=== PATIENT | female | born 1965 | race African-American/Black ===

== ENCOUNTER 2018-06-07 06:54 | Inpatient (IN) ==
[2018-05-30 10:47] LABS: Basophils # 0.1 10*3/uL (0.0-0.2); Basophils % 0.7 % (0.0-0.8); Eosinophils # 0.2 10*3/uL (0.0-0.87); Eosinophils % 2.2 % (0.00-10.9); Hematocrit 35.4 VOL% (35.7-47.0); Hemoglobin 10.8 GM/DL (12.0-16.0); Immature Granulocytes % 0.4 %; Immature Granulocytes Absolute 0.04 #; Lymphocytes # 2.2 10*3/uL (1.4-4.0); Lymphocytes % 23.4 % (21.3-54.2); Mean Corpuscular HGB Conc 30.5 GM/DL (32-36); Mean Corpuscular Hemoglobin 30 PG (27-34); Mean Corpuscular Volume 98.1 FL (87-102); Mean Platelet Volume 11.2 FL (9.6-12.0); Monocytes # 0.7 10*3/uL (0.11-0.8); Monocytes % 7.9 % (1.7-12.7); Neutrophils # 6.2 10*3/uL (1.4-7.4); Neutrophils % 65.4 % (38.7-73.9); Platelet Count 307 T/CUMM (130-400); Red Blood Count 3.61 MC/CUMM (3.8-5.5); White Blood Count 9.4 T/CUMM (4-12)
[2018-05-30 11:07] LABS: Albumin 3.1 G/DL (3.4-5.0); Bilirubin,Total 0.7 MG/DL (0.2-1.0); Calcium 8.8 MG/DL (8.5-10.1); Osmolality,Calculated 297.4 MOS/KG (273-304); Potassium 4.5 MMOL/L (3.5-5.1); Total Protein 7.2 G/DL (6.4-8.3)
[~2018-06-07 06:54] MED LIST: ALVIMOPAN 12 MG CAPSULE PO ONE; cefOXitin 1,000 MG in SYRINGE 1 EACH IV ONE
[2018-06-07] MEDS ORDERED: ALVIMOPAN 12 MG CAPSULE ONE (07:36)
[2018-06-07] MEDS: LACTATED RINGERS 1,000 ML IV SCH ×2 (07:58→17:32)
[2018-06-07] MEDS ORDERED: BUPIVACAINE 0.5% 50 ML VIAL ONE (11:35)
[2018-06-07] MEDS ORDERED: MEPERIDINE 25 MG/1 ML VIAL ONE (13:48)
[2018-06-07] MEDS ORDERED: HYDROmorphone 2 MG/1 ML VIAL ONE (13:48)
[2018-06-07] MEDS ORDERED: ONDANSETRON 4 MG/2 ML VIAL ONE ×2 (13:48→13:55)
[2018-06-07] MEDS ORDERED: PROMETHAZINE 25 MG/1 ML VIAL ONE (13:48)
[2018-06-07] MEDS ORDERED: MEPERIDINE 25 MG/1 ML VIAL IV PRN (13:54)
[2018-06-07] MEDS ORDERED: ONDANSETRON 4 MG/2 ML VIAL IV PRN ×2 (13:54→14:17)
[2018-06-07] MEDS ORDERED: PROMETHAZINE INJ 25 MG in SODIUM CHLORIDE 0.9% 50 ML IV PRN (13:54)
[2018-06-07] MEDS ORDERED: HYDROmorphone 2 MG/1 ML VIAL IV PRN (13:54)
[2018-06-07] MEDS ORDERED: fentaNYL 100 MCG/2 ML VIAL ONE (13:55)
[2018-06-07] MEDS ORDERED: DESFLURANE 1 UNIT/15 MINUTE INH ONE (13:55)
[2018-06-07] MEDS ORDERED: DEXAMETHASONE 10 MG/1 ML VIAL ONE (13:55)
[2018-06-07] MEDS ORDERED: MIDAZOLAM 2 MG/2 ML VIAL ONE (13:55)
[2018-06-07] MEDS ORDERED: PROPOFOL 200 MG/20 ML VIAL IV ONE (13:55)
[2018-06-07] MEDS ORDERED: ROCURONIUM 100 MG/10 ML VIAL IV ONE (13:56)
[2018-06-07] MEDS ORDERED: NEOSTIGMINE 10 MG/10 ML VIAL ONE (13:56)
[2018-06-07] MEDS ORDERED: GLYCOPYRROLATE 0.4 MG/2 ML VIAL ONE (13:56)
[2018-06-07] MEDS ORDERED: LACTATED RINGERS 1,000 ML IV ONE (13:56)
[2018-06-07 13:59] LABS: Apearance,Urine Clear (Clear); Urine Color Yellow (Yellow); Urine Specific Gravity 1.015 (1.001-1.035)
[2018-06-07 14:00] LABS: Bilirubin,Urine Negative (Negative); Blood, Urine 0.03 mg/dL (Negative); Glucose,Urine (UA) 50 mg/dL (Negative); Ketones,Urine Negative (Negative); Nitrite,Urine Negative (Negative); Protein,Urine 30 MG/DL; Urine Urobilinogen 0.2 EU/DL (0.2-1.0)
[2018-06-07] MEDS ORDERED: ACETAMINOPHEN 325 MG TABLET PO PRN (14:17)
[2018-06-07] MEDS ORDERED: ALBUTEROL/IPRATROPIUM 3 ML NEB RESP TX PRN (14:17)
[2018-06-07] MEDS ORDERED: KETOROLAC 15 MG/1 ML VIAL IV PRN (14:30)
[2018-06-07] MEDS: cefOXitin 2,000 MG in SYRINGE 1 EACH IV SCH ×2 (17:18→23:04)
[2018-06-07] MEDS: GABAPENTIN 300 MG CAPSULE PO SCH ×2 (17:18→21:13)
[2018-06-07] MEDS ORDERED: FEXOFENADINE 180 MG TABLET PO SCH (21:00)
[2018-06-07] MEDS: FEXOFENADINE 180 MG TABLET PO SCH (21:13)
[2018-06-08] MEDS: cefOXitin 2,000 MG in SYRINGE 1 EACH IV SCH ×4 (04:36→23:09)
[2018-06-08 05:10] LABS: Basophils % 0.1 % (0.0-0.8); Hematocrit 30.4 VOL% (35.7-47.0); Hemoglobin 9.2 GM/DL (12.0-16.0); Immature Granulocytes % 0.5 %; Immature Granulocytes Absolute 0.07 #; Lymphocytes # 0.9 10*3/uL (1.4-4.0); Lymphocytes % 6.5 % (21.3-54.2); Mean Corpuscular HGB Conc 30.3 GM/DL (32-36); Mean Corpuscular Hemoglobin 30 PG (27-34); Mean Corpuscular Volume 97.4 FL (87-102); Mean Platelet Volume 10.8 FL (9.6-12.0); Neutrophils # 12.2 10*3/uL (1.4-7.4); Neutrophils % 85.9 % (38.7-73.9); Platelet Count 310 T/CUMM (130-400); Red Blood Count 3.12 MC/CUMM (3.8-5.5); Red Cell Distribution Width 12.8 % (9.3-17.3); White Blood Count 14.2 T/CUMM (4-12)
[2018-06-08 05:30] LABS: Calcium 8.6 MG/DL (8.5-10.1); Osmolality,Calculated 292.5 MOS/KG (273-304); Potassium 5.1 MMOL/L (3.5-5.1)
[2018-06-08] MEDS ORDERED: hydroCHLOROthiazide 25 MG TABLET PO SCH (09:00)
[2018-06-08] MEDS: FEXOFENADINE 180 MG TABLET PO SCH ×2 (09:24→20:26)
[2018-06-08] MEDS: GABAPENTIN 300 MG CAPSULE PO SCH ×3 (09:25→20:26)
[2018-06-08] MEDS: PANTOPRAZOLE 40 MG TABLET PO SCH (09:25)
[2018-06-08] MEDS: METOPROLOL TARTRATE 25 MG TABLET PO SCH (12:36)
[2018-06-08] MEDS: PHENAZOPYRIDINE 95 MG TABLET PO SCH (17:57)
[2018-06-08] MEDS: LACTATED RINGERS 1,000 ML IV SCH ×3 (20:21→20:35)
[2018-06-08 20:31] LABS: Apearance,Urine CLEAR (Clear); Bacteria,Urine Occasional /HPF (Few); Bilirubin,Urine Negative (Negative); Blood, Urine Small mg/dL (Negative); Glucose,Urine (UA) Negative (Negative); Ketones,Urine Negative (Negative); Mucus,Urine Occasional /LPF (Occasional); Nitrite,Urine Negative (Negative); Protein,Urine 100 MG/DL; RBC,Urine 2 /HPF (0-4); Squamous Epithelial Cell,Urine Occasional /HPF (0-10); Urine Color Straw (Yellow); Urine Specific Gravity 1.011 (1.001-1.035); Urine Urobilinogen < 2.0 EU/DL (0.2-1.0); WBC,Urine 1 /HPF (0-6)
[2018-06-09] MEDS: cefOXitin 2,000 MG in SYRINGE 1 EACH IV SCH ×3 (05:56→22:50)
[2018-06-09 06:24] LABS: Basophils # 0.1 10*3/uL (0.0-0.2); Basophils % 0.4 % (0.0-0.8); Eosinophils # 0.3 10*3/uL (0.0-0.87); Eosinophils % 2.1 % (0.00-10.9); Hematocrit 28.1 VOL% (35.7-47.0); Hemoglobin 8.4 GM/DL (12.0-16.0); Immature Granulocytes % 0.3 %; Immature Granulocytes Absolute 0.04 #; Lymphocytes # 1.9 10*3/uL (1.4-4.0); Lymphocytes % 15.5 % (21.3-54.2); Mean Corpuscular HGB Conc 29.9 GM/DL (32-36); Mean Corpuscular Hemoglobin 29 PG (27-34); Mean Corpuscular Volume 98.3 FL (87-102); Mean Platelet Volume 10.9 FL (9.6-12.0); Monocytes # 1.3 10*3/uL (0.11-0.8); Monocytes % 11.2 % (1.7-12.7); Neutrophils # 8.5 10*3/uL (1.4-7.4); Neutrophils % 70.5 % (38.7-73.9); Platelet Count 283 T/CUMM (130-400); Red Blood Count 2.86 MC/CUMM (3.8-5.5); Red Cell Distribution Width 12.8 % (9.3-17.3)
[2018-06-09] MEDS: LACTATED RINGERS 1,000 ML IV SCH ×3 (06:26→21:17)
[2018-06-09 06:38] LABS: Calcium 8.9 MG/DL (8.5-10.1); Osmolality,Calculated 297.3 MOS/KG (273-304); Potassium 4.3 MMOL/L (3.5-5.1)
[2018-06-09] MEDS: FEXOFENADINE 180 MG TABLET PO SCH ×2 (09:28→21:16)
[2018-06-09] MEDS: PANTOPRAZOLE 40 MG TABLET PO SCH (09:29)
[2018-06-09] MEDS: GABAPENTIN 300 MG CAPSULE PO SCH ×3 (09:29→21:16)
[2018-06-09] MEDS: METOPROLOL TARTRATE 25 MG TABLET PO SCH (09:29)
[2018-06-09] MEDS: PHENAZOPYRIDINE 95 MG TABLET PO SCH ×2 (12:43→19:12)
[2018-06-09] MEDS: ENOXAPARIN 30 MG/0.3 ML SYRINGE SUBCUT SCH (12:47)
[2018-06-10 06:31] LABS: Basophils # 0.1 10*3/uL (0.0-0.2); Basophils % 0.5 % (0.0-0.8); Eosinophils # 0.3 10*3/uL (0.0-0.87); Eosinophils % 2.7 % (0.00-10.9); Hematocrit 32.9 VOL% (35.7-47.0); Hemoglobin 9.8 GM/DL (12.0-16.0); Immature Granulocytes % 0.4 %; Immature Granulocytes Absolute 0.04 #; Lymphocytes # 1.5 10*3/uL (1.4-4.0); Lymphocytes % 13.7 % (21.3-54.2); Mean Corpuscular HGB Conc 29.8 GM/DL (32-36); Mean Corpuscular Hemoglobin 30 PG (27-34); Mean Corpuscular Volume 99.7 FL (87-102); Mean Platelet Volume 12.1 FL (9.6-12.0); Monocytes % 8.8 % (1.7-12.7); Neutrophils # 8.2 10*3/uL (1.4-7.4); Neutrophils % 73.9 % (38.7-73.9); Platelet Count 223 T/CUMM (130-400); Red Cell Distribution Width 12.7 % (9.3-17.3); White Blood Count 11.1 T/CUMM (4-12)
[2018-06-10 06:34] LABS: Calcium 8.8 MG/DL (8.5-10.1); Osmolality,Calculated 296.1 MOS/KG (273-304); Potassium 4.2 MMOL/L (3.5-5.1)
[2018-06-10 08:24] LABS: Anisocytosis 1+; Hypochromasia 2+
[2018-06-10 08:25] LABS: Microcytosis 1+; Ovalocytes Few; Platelet Estimate Normal; Polychromasia Few
[2018-06-10] MEDS: GABAPENTIN 300 MG CAPSULE PO SCH ×3 (08:41→21:09)
[2018-06-10] MEDS: METOPROLOL TARTRATE 25 MG TABLET PO SCH (08:41)
[2018-06-10] MEDS: PHENAZOPYRIDINE 95 MG TABLET PO SCH ×2 (08:41→16:45)
[2018-06-10] MEDS: FEXOFENADINE 180 MG TABLET PO SCH ×2 (08:41→21:09)
[2018-06-10] MEDS: PANTOPRAZOLE 40 MG TABLET PO SCH (08:42)
[2018-06-10] MEDS: LACTATED RINGERS 1,000 ML IV SCH ×2 (13:00)
[2018-06-10] MEDS: ENOXAPARIN 30 MG/0.3 ML SYRINGE SUBCUT SCH (13:00)
[2018-06-10] MEDS: cefOXitin 2,000 MG in SYRINGE 1 EACH IV SCH (13:00)
[2018-06-11 09:12] LABS: Calcium 8.4 MG/DL (8.5-10.1); Osmolality,Calculated 289.4 MOS/KG (273-304); Potassium 4.2 MMOL/L (3.5-5.1)
[2018-06-11] MEDS: PHENAZOPYRIDINE 95 MG TABLET PO SCH ×2 (09:35→17:08)
[2018-06-11] MEDS: DOCUSATE SODIUM 100 MG CAPSULE PO SCH ×2 (09:35→21:29)
[2018-06-11] MEDS: FEXOFENADINE 180 MG TABLET PO SCH ×2 (09:35→21:28)
[2018-06-11] MEDS: BISACODYL 10 MG SUPP RECTAL SCH ×2 (09:36→21:29)
[2018-06-11] MEDS: GABAPENTIN 300 MG CAPSULE PO SCH ×3 (09:36→21:29)
[2018-06-11] MEDS: PANTOPRAZOLE 40 MG TABLET PO SCH (09:36)
[2018-06-11] MEDS: METOPROLOL TARTRATE 25 MG TABLET PO SCH (11:25)
[2018-06-11] MEDS: ENOXAPARIN 30 MG/0.3 ML SYRINGE SUBCUT SCH (13:40)
[2018-06-11] MEDS: hydrALAZINE 25 MG TABLET PO SCH ×2 (15:10→21:29)
[2018-06-11] MEDS: CITALOPRAM 40 MG TABLET PO SCH (15:11)
[2018-06-12 04:36] LABS: Basophils # 0.1 10*3/uL (0.0-0.2); Basophils % 0.5 % (0.0-0.8); Eosinophils # 0.4 10*3/uL (0.0-0.87); Eosinophils % 3.5 % (0.00-10.9); Hematocrit 29.5 VOL% (35.7-47.0); Hemoglobin 8.6 GM/DL (12.0-16.0); Immature Granulocytes % 0.3 %; Immature Granulocytes Absolute 0.03 #; Lymphocytes # 1.4 10*3/uL (1.4-4.0); Lymphocytes % 12.7 % (21.3-54.2); Mean Corpuscular HGB Conc 29.2 GM/DL (32-36); Mean Corpuscular Hemoglobin 29 PG (27-34); Mean Corpuscular Volume 100.3 FL (87-102); Monocytes % 8.7 % (1.7-12.7); Neutrophils # 8.3 10*3/uL (1.4-7.4); Neutrophils % 74.3 % (38.7-73.9); Platelet Count 322 T/CUMM (130-400); Red Blood Count 2.94 MC/CUMM (3.8-5.5); Red Cell Distribution Width 12.7 % (9.3-17.3); White Blood Count 11.2 T/CUMM (4-12)
[2018-06-12 05:07] LABS: Calcium 8.6 MG/DL (8.5-10.1); Osmolality,Calculated 289.4 MOS/KG (273-304); Potassium 4.5 MMOL/L (3.5-5.1); Risk Ratio 3.88; Thyroid Stimulating Hormone 1.08 uIU/ml (0.358-3.74); VLDL CHOLESTEROL 44.4 MG/DL
[2018-06-12 05:08] LABS: Folate 12.9 NG/ML (5.4-24.0)
[2018-06-12] MEDS: DOCUSATE SODIUM 100 MG CAPSULE PO SCH (08:37)
[2018-06-12] MEDS: hydrALAZINE 25 MG TABLET PO SCH (08:37)
[2018-06-12] MEDS: FEXOFENADINE 180 MG TABLET PO SCH (08:37)
[2018-06-12] MEDS: GABAPENTIN 300 MG CAPSULE PO SCH (08:39)
[2018-06-12] MEDS: METOPROLOL TARTRATE 25 MG TABLET PO SCH (08:39)
[2018-06-12] MEDS: PHENAZOPYRIDINE 95 MG TABLET PO SCH (08:40)
[2018-06-12] MEDS: BISACODYL 10 MG SUPP RECTAL SCH (08:40)
[2018-06-12] MEDS: CITALOPRAM 40 MG TABLET PO SCH (08:47)
[2018-06-12] MEDS: PANTOPRAZOLE 40 MG TABLET PO SCH (08:47)
[2018-06-12 12:17] VITALS: BP 163/95
[2018-06-12] MEDS: ENOXAPARIN 30 MG/0.3 ML SYRINGE SUBCUT SCH (12:32)
== END 2018-06-12 14:00 | disposition swing bed (61) | DRG 330 ==
LOC: N.OR 06:54 → N.SDSINP 06:56 → N.3E 14:17
PROVIDERS: ADMIT Surgery; ATTEND Surgery

== ENCOUNTER 2018-12-22 18:01 | Inpatient (IN) ==
[2018-12-22] MEDS ORDERED: hydrALAZINE 20 MG/1 ML VIAL IV STA ×2 (18:27→19:24)
[2018-12-22 18:57] LABS: Basophils # 0.1 10*3/uL (0.0-0.2); Basophils % 0.4 % (0.0-0.8); Eosinophils # 0.1 10*3/uL (0.0-0.87); Eosinophils % 0.5 % (0.00-10.9); Hematocrit 35.9 VOL% (35.7-47.0); Hemoglobin 10.9 GM/DL (12.0-16.0); Immature Granulocytes % 0.6 %; Immature Granulocytes Absolute 0.12 #; Lymphocytes # 2.3 10*3/uL (1.4-4.0); Lymphocytes % 10.6 % (21.3-54.2); Mean Corpuscular HGB Conc 30.4 GM/DL (32-36); Mean Corpuscular Volume 100.3 FL (87-102); Mean Platelet Volume 10.4 FL (9.6-12.0); Monocytes % 6.5 % (1.7-12.7); NRBC # 0.03 10*3/uL; Neutrophils % 81.4 % (38.7-73.9); Platelet Count 394 T/CUMM (130-400); Red Blood Count 3.58 MC/CUMM (3.8-5.5); Red Cell Distribution Width 13.5 % (9.3-17.3); White Blood Count 21.5 T/CUMM (4-12)
[2018-12-22 18:58] LABS: Alanine Aminotransferase 82 U/L (13-56); Albumin 3.3 G/DL (3.4-5.0); Alkaline Phosphatase 104 U/L (45-117); Aspartate Amino Transferase 74 U/L (0-37); Bilirubin,Total < 0.39 MG/DL (0.2-1.0); Blood Urea Nitrogen 36 MG/DL (7-18); Calcium 9.1 MG/DL (8.5-10.1); Glucose 227 MG/DL (74-106); Total Protein 7.6 G/DL (6.4-8.3)
[2018-12-22] MEDS ORDERED: ETOMIDATE 20 MG/10 ML VIAL IV ONE ×2 (18:58→18:59)
[2018-12-22] MEDS ORDERED: ROCURONIUM 100 MG/10 ML VIAL IV ONE (18:58)
[2018-12-22] MEDS ORDERED: CEFEPIME 2,000 MG in SODIUM CHLORIDE 0.9% 100 ML IV STA ×2 (19:07→19:10)
[2018-12-22] MEDS ORDERED: VANCOMYCIN INJ 1,000 MG in SODIUM CHLORIDE 0.9% 250 ML IV ONE ×2 (19:07→19:30)
[2018-12-22] MEDS ORDERED: FUROSEMIDE 40 MG/4 ML VIAL IV STA (19:08)
[2018-12-22] MEDS: PROPOFOL 1,000 MG/100 ML BOTTLE IV SCH (19:16)
[2018-12-22] MEDS ORDERED: ROCURONIUM 100 MG/10 ML VIAL IV STA (19:17)
[2018-12-22 19:35] LABS: ABG Base Excess -8.2 MMOL/L (-2.5-2.5); ABG HCO3 17.8 MMOL/L (20-26); ABG Oxygen Saturation 98.9 % (95-100); ABG PCO2 43.1 MM HG (35-48); ABG PH 7.248 (7.35-7.45); ABG TCO2 17.2 MMOL/L (23-27); Allen Test Positive; Pt O2 Delivery Device Ventilator
[2018-12-22 19:40] LABS: Lymphocytes 9 % (20-55); Macrocytosis Slight; Platelet Estimate Adequate; Polychromasia Slight; Segmented Neutrophils 87 % (50-85); Total Cells Counted 100
[2018-12-22] MEDS ORDERED: LABETALOL 20 MG/4 ML SYRINGE IV STA ×3 (19:46→20:04)
[2018-12-22] MEDS ORDERED: ONDANSETRON 4 MG/2 ML VIAL IV PRN (19:48)
[2018-12-22] MEDS ORDERED: LABETALOL 100 MG/20 ML VIAL IV STA ×2 (20:02→20:07)
[2018-12-22] MEDS ORDERED: ACETAMINOPHEN 325 MG/10.15 ML UDCUP PO PRN (20:07)
[2018-12-22 20:27] LABS: INR 0.9; PT Patient Result 10.1 SECS; Partial Thromboplastin Time 25.2 SECS (0-40)
[2018-12-22 20:47] LABS: Apearance,Urine CLEAR (Clear); Bacteria,Urine Occasional /HPF (Few); Bilirubin,Urine Negative (Negative); Blood, Urine Small mg/dL (Negative); Glucose,Urine (UA) 150 mg/dL (Negative); Ketones,Urine 5 mg/dL (Negative); Mucus,Urine Occasional /LPF (Occasional); Nitrite,Urine Negative (Negative); Protein,Urine >=500 MG/DL; RBC,Urine 3 /HPF (0-4); Squamous Epithelial Cell,Urine Occasional /HPF (0-10); Urine Color Straw (Yellow); Urine Specific Gravity 1.012 (1.001-1.035); Urine Urobilinogen < 2.0 EU/DL (0.2-1.0); WBC,Urine <1 /HPF (0-6)
[2018-12-22] MEDS ORDERED: NITROGLYCERIN DRIP 50 MG/250 ML BOTTLE IV PRN (20:53)
[2018-12-22] MEDS ORDERED: GLUCAGON 1 MG VIAL IM PRN (21:03)
[2018-12-22] MEDS ORDERED: DEXTROSE 50% 25 GM/50 ML VIAL IV PRN (21:03)
[2018-12-22] MEDS: hydrALAZINE 20 MG/1 ML VIAL IV PRN (22:25)
[2018-12-22] MEDS: ENOXAPARIN 30 MG/0.3 ML SYRINGE SUBCUT SCH (22:29)
[2018-12-22] MEDS: INSULIN LISPRO 100 UNIT/ML SUBCUT SCH (23:39)
[2018-12-22] MEDS: PIPERACILLIN/TAZOBACTAM 3,375 MG in SODIUM CHLORIDE 0.9% 100 ML IV SCH (23:40)
[2018-12-23] MEDS: PROPOFOL 1,000 MG/100 ML BOTTLE IV SCH ×8 (01:37→22:23)
[2018-12-23 05:25] LABS: Basophils # 0.1 10*3/uL (0.0-0.2); Basophils % 0.5 % (0.0-0.8); Eosinophils # 0.1 10*3/uL (0.0-0.87); Eosinophils % 0.6 % (0.00-10.9); Hematocrit 33.4 VOL% (35.7-47.0); Hemoglobin 9.9 GM/DL (12.0-16.0); Immature Granulocytes % 0.6 %; Immature Granulocytes Absolute 0.06 #; Lymphocytes # 1.5 10*3/uL (1.4-4.0); Lymphocytes % 13.4 % (21.3-54.2); Mean Corpuscular HGB Conc 29.6 GM/DL (32-36); Mean Platelet Volume 10.6 FL (9.6-12.0); Monocytes % 10.3 % (1.7-12.7); Neutrophils % 74.6 % (38.7-73.9); Platelet Count 349 T/CUMM (130-400); Red Blood Count 3.34 MC/CUMM (3.8-5.5); Red Cell Distribution Width 13.4 % (9.3-17.3); White Blood Count 10.9 T/CUMM (4-12)
[2018-12-23 05:48] LABS: Albumin 2.9 G/DL (3.4-5.0); Bilirubin,Total 0.4 MG/DL (0.2-1.0); Osmolality,Calculated 301.6 MOS/KG (273-304); Total Protein 6.7 G/DL (6.4-8.3)
[2018-12-23 05:51] LABS: Risk Ratio 5.06; VLDL CHOLESTEROL 62.6 MG/DL
[2018-12-23] MEDS: INSULIN LISPRO 100 UNIT/ML SUBCUT SCH ×3 (05:52→18:09)
[2018-12-23] MEDS ORDERED: MAGNESIUM SULF RIDER 4 GM in PREMIX 1 EACH IV PRN (07:11)
[2018-12-23] MEDS ORDERED: POTASSIUM CHLORIDE 20 MEQ TABLET PO PRN (07:11)
[2018-12-23] MEDS ORDERED: MAGNESIUM SULF RIDER 2 GM in PREMIX 1 EACH IV PRN (07:11)
[2018-12-23 07:29] LABS: ABG Base Excess -6.7 MMOL/L (-2.5-2.5); ABG HCO3 18.9 MMOL/L (20-26); ABG Oxygen Saturation 95.4 % (95-100); ABG PCO2 35.9 MM HG (35-48); ABG PH 7.324 (7.35-7.45); ABG PO2 77.6 MM HG (80-95); ABG TCO2 17.2 MMOL/L (23-27); Allen Test Positive; Pt O2 Delivery Device Ventilator
[2018-12-23] MEDS ORDERED: FUROSEMIDE 40 MG/4 ML VIAL IV SCH (08:00)
[2018-12-23] MEDS ORDERED: LABETALOL 20 MG/4 ML SYRINGE IV ONE ×2 (08:32→08:34)
[2018-12-23] MEDS ORDERED: FUROSEMIDE 40 MG/4 ML VIAL IV ONE ×2 (08:33→08:37)
[2018-12-23] MEDS ORDERED: LABETALOL 20 MG/4 ML SYRINGE IV PRN (08:34)
[2018-12-23] MEDS ORDERED: FUROSEMIDE 20 MG/2 ML VIAL ONE (08:47)
[2018-12-23] MEDS ORDERED: PANTOPRAZOLE 40 MG VIAL IV SCH (09:00)
[2018-12-23] MEDS: amLODIPine 2.5 MG TABLET PO SCH (10:02)
[2018-12-23] MEDS: CARVEDILOL 3.125 MG TABLET PO SCH ×2 (10:02→16:04)
[2018-12-23] MEDS: POTASSIUM CHLORIDE 20 MEQ/15 ML UDCUP PER TUBE SCH ×2 (10:02→20:39)
[2018-12-23 10:42] LABS: Troponin I 0.112 NG/ML (0.00-0.045)
[2018-12-23] MEDS: PIPERACILLIN/TAZOBACTAM 3,375 MG in SODIUM CHLORIDE 0.9% 100 ML IV SCH ×2 (12:16→23:24)
[2018-12-23] MEDS: FUROSEMIDE 40 MG/4 ML VIAL IV SCH ×2 (14:07→20:40)
[2018-12-23] MEDS: ALBUTEROL/IPRATROPIUM 3 ML NEB RESP TX SCH ×3 (16:25→23:25)
[2018-12-23 18:54] LABS: Troponin I 0.087 NG/ML (0.00-0.045)
[2018-12-23] MEDS: ENOXAPARIN 30 MG/0.3 ML SYRINGE SUBCUT SCH (20:40)
[2018-12-24] MEDS: INSULIN LISPRO 100 UNIT/ML SUBCUT SCH ×5 (00:41→23:38)
[2018-12-24] MEDS: PROPOFOL 1,000 MG/100 ML BOTTLE IV SCH ×7 (01:59→23:27)
[2018-12-24] MEDS: FUROSEMIDE 40 MG/4 ML VIAL IV SCH ×4 (02:38→20:22)
[2018-12-24] MEDS: ALBUTEROL/IPRATROPIUM 3 ML NEB RESP TX SCH ×6 (03:30→23:38)
[2018-12-24 04:08] LABS: ABG Base Excess -7.8 MMOL/L (-2.5-2.5); ABG HCO3 16.8 MMOL/L (20-26); ABG Oxygen Saturation 97.4 % (95-100); ABG PCO2 31.5 MM HG (35-48); ABG PH 7.346 (7.35-7.45); ABG PO2 108.4 MM HG (80-95); ABG TCO2 17.8 MMOL/L (23-27); Allen Test Positive; Pt O2 Delivery Device Ventilator
[2018-12-24 05:10] LABS: Basophils # 0.1 10*3/uL (0.0-0.2); Basophils % 0.8 % (0.0-0.8); Eosinophils # 0.3 10*3/uL (0.0-0.87); Eosinophils % 3.2 % (0.00-10.9); Hematocrit 31.2 VOL% (35.7-47.0); Hemoglobin 9.5 GM/DL (12.0-16.0); Immature Granulocytes % 0.8 %; Immature Granulocytes Absolute 0.07 #; Lymphocytes # 1.7 10*3/uL (1.4-4.0); Mean Corpuscular HGB Conc 30.4 GM/DL (32-36); Mean Corpuscular Volume 97.8 FL (87-102); Monocytes % 11.2 % (1.7-12.7); Platelet Count 337 T/CUMM (130-400); Red Blood Count 3.19 MC/CUMM (3.8-5.5); Red Cell Distribution Width 13.5 % (9.3-17.3)
[2018-12-24 05:28] LABS: Calcium 8.6 MG/DL (8.5-10.1); Osmolality,Calculated 297.8 MOS/KG (273-304)
[2018-12-24] MEDS: amLODIPine 2.5 MG TABLET PO SCH (09:08)
[2018-12-24] MEDS: CARVEDILOL 3.125 MG TABLET PO SCH ×2 (09:09→16:21)
[2018-12-24] MEDS: POTASSIUM CHLORIDE 20 MEQ/15 ML UDCUP PER TUBE SCH ×2 (09:09→20:31)
[2018-12-24] MEDS: FAMOTIDINE 20 MG/2 ML VIAL IV SCH (09:13)
[2018-12-24] MEDS: PIPERACILLIN/TAZOBACTAM 3,375 MG in SODIUM CHLORIDE 0.9% 100 ML IV SCH ×2 (12:42→23:10)
[2018-12-24] MEDS: ASPIRIN CHEW 81 MG TABLET PO SCH (14:30)
[2018-12-24] MEDS: hydrALAZINE 20 MG/1 ML VIAL IV PRN (15:08)
[2018-12-24] MEDS ORDERED: VANCOMYCIN INJ 1,000 MG in SODIUM CHLORIDE 0.9% 250 ML IV SCH (18:00)
[2018-12-24] MEDS: ENOXAPARIN 30 MG/0.3 ML SYRINGE SUBCUT SCH (20:31)
[2018-12-25] MEDS: FUROSEMIDE 40 MG/4 ML VIAL IV SCH ×4 (02:24→20:21)
[2018-12-25 02:56] LABS: ABG Base Excess -7.6 MMOL/L (-2.5-2.5); ABG HCO3 18.3 MMOL/L (20-26); ABG Oxygen Saturation 99.6 % (95-100); ABG PCO2 30.9 MM HG (35-48); ABG PH 7.351 (7.35-7.45); ABG TCO2 15.7 MMOL/L (23-27); Allen Test Positive; Pt O2 Delivery Device Ventilator
[2018-12-25] MEDS: PROPOFOL 1,000 MG/100 ML BOTTLE IV SCH ×6 (03:17→22:58)
[2018-12-25] MEDS: ALBUTEROL/IPRATROPIUM 3 ML NEB RESP TX SCH ×6 (03:43→22:34)
[2018-12-25] MEDS: LABETALOL 100 MG/20 ML VIAL IV PRN ×2 (04:31→08:00)
[2018-12-25 04:34] LABS: Basophils # 0.1 10*3/uL (0.0-0.2); Eosinophils # 0.4 10*3/uL (0.0-0.87); Eosinophils % 4.2 % (0.00-10.9); Hematocrit 33.1 VOL% (35.7-47.0); Hemoglobin 9.7 GM/DL (12.0-16.0); Immature Granulocytes % 0.4 %; Immature Granulocytes Absolute 0.04 #; Lymphocytes # 1.3 10*3/uL (1.4-4.0); Lymphocytes % 14.5 % (21.3-54.2); Mean Corpuscular HGB Conc 29.3 GM/DL (32-36); Mean Corpuscular Volume 98.5 FL (87-102); Mean Platelet Volume 10.4 FL (9.6-12.0); Monocytes % 11.8 % (1.7-12.7); Neutrophils % 68.1 % (38.7-73.9); Platelet Count 358 T/CUMM (130-400); Red Blood Count 3.36 MC/CUMM (3.8-5.5); Red Cell Distribution Width 13.6 % (9.3-17.3); White Blood Count 9.2 T/CUMM (4-12)
[2018-12-25 04:50] LABS: Albumin 2.6 G/DL (3.4-5.0); Bilirubin,Direct 0.18 MG/DL (0.0-0.20); Bilirubin,Indirect 0.2 MG/DL (0.0-1.0); Bilirubin,Total 0.4 MG/DL (0.2-1.0); Calcium 8.7 MG/DL (8.5-10.1); Osmolality,Calculated 299.8 MOS/KG (273-304); Total Protein 7.1 G/DL (6.4-8.3)
[2018-12-25 04:54] LABS: Prealbumin 23.9 MG/DL (20-40)
[2018-12-25] MEDS: INSULIN LISPRO 100 UNIT/ML SUBCUT SCH ×4 (06:07→23:50)
[2018-12-25] MEDS ORDERED: POTASSIUM CHLORIDE 20 MEQ/15 ML UDCUP PO PRN (07:30)
[2018-12-25] MEDS: CARVEDILOL 3.125 MG TABLET PO SCH ×2 (07:55→16:50)
[2018-12-25] MEDS: FAMOTIDINE 20 MG/2 ML VIAL IV SCH (08:45)
[2018-12-25] MEDS: amLODIPine 2.5 MG TABLET PO SCH (08:45)
[2018-12-25] MEDS: ASPIRIN CHEW 81 MG TABLET PO SCH (08:45)
[2018-12-25] MEDS: PIPERACILLIN/TAZOBACTAM 3,375 MG in SODIUM CHLORIDE 0.9% 100 ML IV SCH ×2 (10:57→23:06)
[2018-12-25] MEDS: hydrALAZINE 20 MG/1 ML VIAL IV PRN (13:35)
[2018-12-25] MEDS: ATORVASTATIN 10 MG TABLET PO SCH (20:21)
[2018-12-25] MEDS: ENOXAPARIN 30 MG/0.3 ML SYRINGE SUBCUT SCH (20:21)
[2018-12-26] MEDS ORDERED: ALBUMIN 5% 25 GM in PREMIX 1 EACH IV ONE (01:00)
[2018-12-26] MEDS ORDERED: metOLazone 5 MG TABLET PO ONE (01:00)
[2018-12-26] MEDS: FUROSEMIDE 40 MG/4 ML VIAL IV SCH ×4 (02:06→21:25)
[2018-12-26] MEDS: PROPOFOL 1,000 MG/100 ML BOTTLE IV SCH ×6 (02:23→21:26)
[2018-12-26] MEDS: ALBUTEROL/IPRATROPIUM 3 ML NEB RESP TX SCH ×6 (02:24→23:24)
[2018-12-26 03:42] LABS: ABG Base Excess -5.5 MMOL/L (-2.5-2.5); ABG HCO3 18.7 MMOL/L (20-26); ABG Oxygen Saturation 97.1 % (95-100); ABG PCO2 31.6 MM HG (35-48); ABG PH 7.389 (7.35-7.45); ABG PO2 96.8 MM HG (80-95); ABG TCO2 19.6 MMOL/L (23-27); Allen Test Positive; Pt O2 Delivery Device Ventilator
[2018-12-26 04:06] LABS: Basophils # 0.1 10*3/uL (0.0-0.2); Basophils % 0.7 % (0.0-0.8); Eosinophils # 0.3 10*3/uL (0.0-0.87); Eosinophils % 3.8 % (0.00-10.9); Hematocrit 29.4 VOL% (35.7-47.0); Immature Granulocytes % 0.3 %; Immature Granulocytes Absolute 0.02 #; Lymphocytes # 1.3 10*3/uL (1.4-4.0); Lymphocytes % 17.6 % (21.3-54.2); Mean Corpuscular HGB Conc 30.6 GM/DL (32-36); Mean Platelet Volume 10.7 FL (9.6-12.0); Monocytes % 12.2 % (1.7-12.7); Neutrophils % 65.4 % (38.7-73.9); Platelet Count 347 T/CUMM (130-400); Red Cell Distribution Width 13.4 % (9.3-17.3); White Blood Count 7.4 T/CUMM (4-12)
[2018-12-26 04:22] LABS: Calcium 8.3 MG/DL (8.5-10.1); Osmolality,Calculated 299.1 MOS/KG (273-304)
[2018-12-26] MEDS: INSULIN LISPRO 100 UNIT/ML SUBCUT SCH ×4 (05:44→23:50)
[2018-12-26] MEDS: ASPIRIN CHEW 81 MG TABLET PO SCH (08:46)
[2018-12-26] MEDS: amLODIPine 2.5 MG TABLET PO SCH (08:46)
[2018-12-26] MEDS: FAMOTIDINE 20 MG/2 ML VIAL IV SCH (08:47)
[2018-12-26] MEDS: CARVEDILOL 6.25 MG TABLET PO SCH ×2 (08:47→19:05)
[2018-12-26] MEDS: PIPERACILLIN/TAZOBACTAM 3,375 MG in SODIUM CHLORIDE 0.9% 100 ML IV SCH ×2 (11:33→23:17)
[2018-12-26] MEDS: ENOXAPARIN 30 MG/0.3 ML SYRINGE SUBCUT SCH (21:26)
[2018-12-26] MEDS: ATORVASTATIN 10 MG TABLET PO SCH (21:26)
[2018-12-26] MEDS: hydrALAZINE 20 MG/1 ML VIAL IV PRN (22:24)
[2018-12-26] MEDS: LABETALOL 100 MG/20 ML VIAL IV PRN (23:39)
[2018-12-27] MEDS: FUROSEMIDE 40 MG/4 ML VIAL IV SCH ×4 (01:37→21:47)
[2018-12-27] MEDS: PROPOFOL 1,000 MG/100 ML BOTTLE IV SCH ×2 (01:37→05:51)
[2018-12-27] MEDS: LABETALOL 100 MG/20 ML VIAL IV PRN (02:01)
[2018-12-27] MEDS: ALBUTEROL/IPRATROPIUM 3 ML NEB RESP TX SCH ×6 (03:59→23:11)
[2018-12-27 04:14] LABS: ABG Base Excess -3.3 MMOL/L (-2.5-2.5); ABG HCO3 21.7 MMOL/L (20-26); ABG Oxygen Saturation 98.3 % (95-100); ABG PCO2 37.7 MM HG (35-48); ABG PH 7.367 (7.35-7.45); ABG TCO2 19.1 MMOL/L (23-27); Allen Test Positive; Pt O2 Delivery Device Ventilator
[2018-12-27 05:51] LABS: Basophils # 0.1 10*3/uL (0.0-0.2); Basophils % 0.6 % (0.0-0.8); Eosinophils # 0.3 10*3/uL (0.0-0.87); Eosinophils % 4.1 % (0.00-10.9); Hematocrit 31.8 VOL% (35.7-47.0); Hemoglobin 9.5 GM/DL (12.0-16.0); Immature Granulocytes % 0.6 %; Immature Granulocytes Absolute 0.05 #; Lymphocytes # 1.2 10*3/uL (1.4-4.0); Lymphocytes % 15.2 % (21.3-54.2); Mean Corpuscular HGB Conc 29.9 GM/DL (32-36); Mean Corpuscular Volume 99.1 FL (87-102); Mean Platelet Volume 10.8 FL (9.6-12.0); Monocytes % 12.4 % (1.7-12.7); NRBC # 0.02 10*3/uL; Neutrophils % 67.1 % (38.7-73.9); Platelet Count 370 T/CUMM (130-400); Red Blood Count 3.21 MC/CUMM (3.8-5.5); Red Cell Distribution Width 13.2 % (9.3-17.3); White Blood Count 8.1 T/CUMM (4-12)
[2018-12-27] MEDS: INSULIN LISPRO 100 UNIT/ML SUBCUT SCH ×4 (05:58→23:40)
[2018-12-27 06:18] LABS: Calcium 8.6 MG/DL (8.5-10.1); Osmolality,Calculated 305.3 MOS/KG (273-304)
[2018-12-27] MEDS: CARVEDILOL 12.5 MG TABLET PO SCH ×2 (08:29→17:31)
[2018-12-27] MEDS: amLODIPine 2.5 MG TABLET PO SCH (08:30)
[2018-12-27] MEDS: FAMOTIDINE 20 MG/2 ML VIAL IV SCH (08:30)
[2018-12-27] MEDS: ASPIRIN CHEW 81 MG TABLET PO SCH (08:30)
[2018-12-27] MEDS: PIPERACILLIN/TAZOBACTAM 3,375 MG in SODIUM CHLORIDE 0.9% 100 ML IV SCH ×2 (11:00→23:06)
[2018-12-27] MEDS ORDERED: PROPOFOL 1,000 MG/100 ML BOTTLE IV SCH (20:00)
[2018-12-27] MEDS: ENOXAPARIN 30 MG/0.3 ML SYRINGE SUBCUT SCH (21:46)
[2018-12-27] MEDS: ATORVASTATIN 10 MG TABLET PO SCH (21:46)
[2018-12-27] MEDS: hydrALAZINE 20 MG/1 ML VIAL IV PRN (22:48)
[2018-12-27] MEDS: fentaNYL 100 MCG/2 ML VIAL IV PRN (23:42)
[2018-12-28] MEDS: ALBUTEROL/IPRATROPIUM 3 ML NEB RESP TX SCH ×5 (02:42→20:06)
[2018-12-28] MEDS: fentaNYL 100 MCG/2 ML VIAL IV PRN (03:47)
[2018-12-28 04:28] LABS: ABG Base Excess -1.8 MMOL/L (-2.5-2.5); ABG HCO3 22.8 MMOL/L (20-26); ABG Oxygen Saturation 98.6 % (95-100); ABG PCO2 37.8 MM HG (35-48); ABG PH 7.398 (7.35-7.45); ABG PO2 126.1 MM HG (80-95); ABG TCO2 23.9 MMOL/L (23-27); Allen Test Positive; Pt O2 Delivery Device Ventilator
[2018-12-28 04:48] LABS: Basophils # 0.1 10*3/uL (0.0-0.2); Basophils % 0.7 % (0.0-0.8); Eosinophils # 0.4 10*3/uL (0.0-0.87); Eosinophils % 2.9 % (0.00-10.9); Hemoglobin 9.4 GM/DL (12.0-16.0); Immature Granulocytes % 1.2 %; Immature Granulocytes Absolute 0.14 #; Lymphocytes # 1.6 10*3/uL (1.4-4.0); Lymphocytes % 13.2 % (21.3-54.2); Mean Corpuscular HGB Conc 29.4 GM/DL (32-36); Mean Corpuscular Volume 101.3 FL (87-102); Mean Platelet Volume 10.8 FL (9.6-12.0); Monocytes % 13.4 % (1.7-12.7); NRBC # 0.03 10*3/uL; Neutrophils % 68.6 % (38.7-73.9); Platelet Count 400 T/CUMM (130-400); Red Blood Count 3.16 MC/CUMM (3.8-5.5); Red Cell Distribution Width 13.2 % (9.3-17.3); White Blood Count 12.1 T/CUMM (4-12)
[2018-12-28 05:16] LABS: Calcium 9.4 MG/DL (8.5-10.1)
[2018-12-28] MEDS: INSULIN LISPRO 100 UNIT/ML SUBCUT SCH ×4 (05:41→20:38)
[2018-12-28] MEDS: FUROSEMIDE 40 MG/4 ML VIAL IV SCH ×2 (05:42→09:38)
[2018-12-28] MEDS: CARVEDILOL 12.5 MG TABLET PO SCH ×2 (08:47→17:05)
[2018-12-28] MEDS: ASPIRIN CHEW 81 MG TABLET PO SCH (08:48)
[2018-12-28] MEDS: amLODIPine 2.5 MG TABLET PO SCH (08:48)
[2018-12-28] MEDS: FAMOTIDINE 20 MG/2 ML VIAL IV SCH (08:49)
[2018-12-28] MEDS: PIPERACILLIN/TAZOBACTAM 3,375 MG in SODIUM CHLORIDE 0.9% 100 ML IV SCH ×2 (11:05→22:56)
[2018-12-28] MEDS: ENOXAPARIN 30 MG/0.3 ML SYRINGE SUBCUT SCH (20:34)
[2018-12-28] MEDS: ATORVASTATIN 10 MG TABLET PO SCH (20:34)
[2018-12-29] MEDS: ALBUTEROL/IPRATROPIUM 3 ML NEB RESP TX SCH ×6 (00:10→23:59)
[2018-12-29 05:02] LABS: Calcium 9.7 MG/DL (8.5-10.1); Osmolality,Calculated 315.8 MOS/KG (273-304)
[2018-12-29 05:10] LABS: Basophils # 0.1 10*3/uL (0.0-0.2); Basophils % 0.5 % (0.0-0.8); Eosinophils # 0.4 10*3/uL (0.0-0.87); Eosinophils % 3.1 % (0.00-10.9); Hematocrit 32.2 VOL% (35.7-47.0); Immature Granulocytes % 0.9 %; Immature Granulocytes Absolute 0.13 #; Lymphocytes % 14.1 % (21.3-54.2); Mean Corpuscular Volume 104.2 FL (87-102); Mean Platelet Volume 11.1 FL (9.6-12.0); Monocytes % 16.1 % (1.7-12.7); NRBC # 0.06 10*3/uL; Neutrophils % 65.3 % (38.7-73.9); Platelet Count 395 T/CUMM (130-400); Red Blood Count 3.09 MC/CUMM (3.8-5.5); Red Cell Distribution Width 13.3 % (9.3-17.3); White Blood Count 13.9 T/CUMM (4-12)
[2018-12-29 05:31] LABS: Hypochromasia 1+; Lymphocytes 22 % (20-55); Microcytosis 1+; Platelet Estimate Normal; Polychromasia Few; Segmented Neutrophils 66 % (50-85); Total Cells Counted 100
[2018-12-29] MEDS: INSULIN LISPRO 100 UNIT/ML SUBCUT SCH ×4 (08:55→21:52)
[2018-12-29] MEDS: ASPIRIN CHEW 81 MG TABLET PO SCH (08:58)
[2018-12-29] MEDS: CARVEDILOL 12.5 MG TABLET PO SCH ×2 (08:58→16:41)
[2018-12-29] MEDS: amLODIPine 5 MG TABLET PO SCH (08:58)
[2018-12-29] MEDS: FAMOTIDINE 20 MG/2 ML VIAL IV SCH (08:59)
[2018-12-29] MEDS: FUROSEMIDE 40 MG/4 ML VIAL IV SCH (09:02)
[2018-12-29] MEDS: hydrALAZINE 20 MG/1 ML VIAL IV PRN (09:07)
[2018-12-29] MEDS: PIPERACILLIN/TAZOBACTAM 3,375 MG in SODIUM CHLORIDE 0.9% 100 ML IV SCH (11:55)
[2018-12-29] MEDS: ENOXAPARIN 30 MG/0.3 ML SYRINGE SUBCUT SCH (21:47)
[2018-12-29] MEDS: ATORVASTATIN 10 MG TABLET PO SCH (21:47)
[2018-12-30] MEDS: PIPERACILLIN/TAZOBACTAM 3,375 MG in SODIUM CHLORIDE 0.9% 100 ML IV SCH (00:02)
[2018-12-30 03:47] LABS: Basophils # 0.1 10*3/uL (0.0-0.2); Basophils % 0.4 % (0.0-0.8); Eosinophils # 0.7 10*3/uL (0.0-0.87); Eosinophils % 3.8 % (0.00-10.9); Hematocrit 25.6 VOL% (35.7-47.0); Hemoglobin 7.4 GM/DL (12.0-16.0); Immature Granulocytes Absolute 0.18 #; Lymphocytes # 2.8 10*3/uL (1.4-4.0); Lymphocytes % 15.9 % (21.3-54.2); Mean Corpuscular HGB Conc 28.9 GM/DL (32-36); Mean Corpuscular Volume 104.1 FL (87-102); Mean Platelet Volume 10.8 FL (9.6-12.0); Monocytes % 15.6 % (1.7-12.7); Neutrophils % 63.3 % (38.7-73.9); Platelet Count 430 T/CUMM (130-400); Red Blood Count 2.46 MC/CUMM (3.8-5.5); Red Cell Distribution Width 13.4 % (9.3-17.3); White Blood Count 17.8 T/CUMM (4-12)
[2018-12-30] MEDS: ALBUTEROL/IPRATROPIUM 3 ML NEB RESP TX SCH ×5 (03:53→19:41)
[2018-12-30 04:12] LABS: Calcium 9.3 MG/DL (8.5-10.1); Osmolality,Calculated 319.1 MOS/KG (273-304)
[2018-12-30 04:22] LABS: Anisocytosis 1+; Eosinophils 2 % (0-10); Hypochromasia Slight; Lymphocytes 15 % (20-55); Microcytosis Slight; Platelet Estimate Adequate; Segmented Neutrophils 67 % (50-85); Total Cells Counted 100
[2018-12-30] MEDS: ASPIRIN CHEW 81 MG TABLET PO SCH (08:58)
[2018-12-30] MEDS: amLODIPine 5 MG TABLET PO SCH (08:58)
[2018-12-30] MEDS: FAMOTIDINE 20 MG/2 ML VIAL IV SCH (08:58)
[2018-12-30] MEDS: CARVEDILOL 12.5 MG TABLET PO SCH ×2 (08:58→16:41)
[2018-12-30] MEDS: INSULIN LISPRO 100 UNIT/ML SUBCUT SCH ×4 (08:59→20:34)
[2018-12-30] MEDS: FUROSEMIDE 40 MG/4 ML VIAL IV SCH (09:00)
[2018-12-30] MEDS: hydrALAZINE 10 MG TABLET PO SCH ×2 (16:41→20:35)
[2018-12-30] MEDS: ISOSORBIDE DINITRATE 10 MG TABLET PO SCH ×2 (16:41→20:35)
[2018-12-30] MEDS: ENOXAPARIN 30 MG/0.3 ML SYRINGE SUBCUT SCH (20:34)
[2018-12-30] MEDS: ATORVASTATIN 10 MG TABLET PO SCH (20:35)
[2018-12-31] MEDS: ALBUTEROL/IPRATROPIUM 3 ML NEB RESP TX SCH ×7 (00:05→22:50)
[2018-12-31 06:02] LABS: Calcium 9.5 MG/DL (8.5-10.1); Osmolality,Calculated 327.6 MOS/KG (273-304)
[2018-12-31 07:08] LABS: Basophils # 0.1 10*3/uL (0.0-0.2); Basophils % 0.3 % (0.0-0.8); Eosinophils # 0.7 10*3/uL (0.0-0.87); Eosinophils % 3.6 % (0.00-10.9); Immature Granulocytes % 1.2 %; Immature Granulocytes Absolute 0.22 #; Lymphocytes # 3.5 10*3/uL (1.4-4.0); Lymphocytes % 18.7 % (21.3-54.2); Mean Corpuscular HGB Conc 29.1 GM/DL (32-36); Mean Corpuscular Volume 104.3 FL (87-102); Mean Platelet Volume 10.9 FL (9.6-12.0); Monocytes % 14.6 % (1.7-12.7); NRBC # 0.18 10*3/uL; Neutrophils % 61.6 % (38.7-73.9); Platelet Count 458 T/CUMM (130-400); Red Blood Count 2.11 MC/CUMM (3.8-5.5); Red Cell Distribution Width 13.2 % (9.3-17.3); White Blood Count 18.7 T/CUMM (4-12)
[2018-12-31 07:22] LABS: Hemoglobin 6.4 GM/DL (12.0-16.0)
[2018-12-31 07:38] LABS: Hypochromasia 1+; Platelet Estimate Adequate
[2018-12-31] MEDS ORDERED: SODIUM CHLORIDE 0.9% 1,000 ML IV PRN (07:51)
[2018-12-31] MEDS: amLODIPine 5 MG TABLET PO SCH (09:20)
[2018-12-31] MEDS: CARVEDILOL 12.5 MG TABLET PO SCH ×2 (09:20→17:17)
[2018-12-31] MEDS: ISOSORBIDE DINITRATE 10 MG TABLET PO SCH ×3 (09:20→20:11)
[2018-12-31] MEDS: ASPIRIN CHEW 81 MG TABLET PO SCH (09:20)
[2018-12-31] MEDS: hydrALAZINE 10 MG TABLET PO SCH ×3 (09:20→20:11)
[2018-12-31] MEDS: FAMOTIDINE 20 MG/2 ML VIAL IV SCH (09:21)
[2018-12-31] MEDS: INSULIN LISPRO 100 UNIT/ML SUBCUT SCH ×4 (09:26→20:57)
[2018-12-31 12:15] LABS: % Iron Saturation 44.4 % (18-50); Ferritin 1496.2 ng/ml (8-252)
[2018-12-31 17:24] LABS: Hematocrit 27.7 VOL% (35.7-47.0); Hemoglobin 8.5 GM/DL (12.0-16.0)
[2018-12-31] MEDS: ENOXAPARIN 30 MG/0.3 ML SYRINGE SUBCUT SCH (20:11)
[2018-12-31] MEDS: ATORVASTATIN 10 MG TABLET PO SCH (20:11)
[2019-01-01] MEDS: ALBUTEROL/IPRATROPIUM 3 ML NEB RESP TX SCH ×6 (02:40→22:43)
[2019-01-01 05:39] LABS: Basophils # 0.1 10*3/uL (0.0-0.2); Basophils % 0.6 % (0.0-0.8); Eosinophils # 0.7 10*3/uL (0.0-0.87); Eosinophils % 3.7 % (0.00-10.9); Hematocrit 28.3 VOL% (35.7-47.0); Immature Granulocytes % 1.6 %; Lymphocytes # 3.7 10*3/uL (1.4-4.0); Lymphocytes % 19.3 % (21.3-54.2); Mean Corpuscular HGB Conc 31.8 GM/DL (32-36); Mean Corpuscular Volume 97.3 FL (87-102); Mean Platelet Volume 10.7 FL (9.6-12.0); NRBC # 0.18 10*3/uL; Neutrophils % 60.8 % (38.7-73.9); Platelet Count 468 T/CUMM (130-400); Red Blood Count 2.91 MC/CUMM (3.8-5.5); Red Cell Distribution Width 15.2 % (9.3-17.3); White Blood Count 19.2 T/CUMM (4-12)
[2019-01-01 05:55] LABS: Calcium 9.6 MG/DL (8.5-10.1); Osmolality,Calculated 313.3 MOS/KG (273-304)
[2019-01-01] MEDS: INSULIN LISPRO 100 UNIT/ML SUBCUT SCH ×4 (09:04→20:30)
[2019-01-01] MEDS: hydrALAZINE 10 MG TABLET PO SCH ×3 (09:05→20:36)
[2019-01-01] MEDS: ISOSORBIDE DINITRATE 10 MG TABLET PO SCH ×3 (09:05→20:29)
[2019-01-01] MEDS: amLODIPine 5 MG TABLET PO SCH (09:06)
[2019-01-01] MEDS: ASPIRIN CHEW 81 MG TABLET PO SCH (09:07)
[2019-01-01] MEDS: CARVEDILOL 12.5 MG TABLET PO SCH ×2 (09:07→16:16)
[2019-01-01] MEDS: FAMOTIDINE 20 MG/2 ML VIAL IV SCH (09:09)
[2019-01-01] MEDS: ATORVASTATIN 10 MG TABLET PO SCH (20:36)
[2019-01-01] MEDS: ENOXAPARIN 30 MG/0.3 ML SYRINGE SUBCUT SCH (20:37)
[2019-01-02] MEDS: ALBUTEROL/IPRATROPIUM 3 ML NEB RESP TX SCH ×5 (02:14→19:17)
[2019-01-02 05:50] LABS: Basophils # 0.1 10*3/uL (0.0-0.2); Basophils % 0.6 % (0.0-0.8); Eosinophils # 0.5 10*3/uL (0.0-0.87); Eosinophils % 3.1 % (0.00-10.9); Hematocrit 28.6 VOL% (35.7-47.0); Hemoglobin 8.9 GM/DL (12.0-16.0); Immature Granulocytes % 1.4 %; Immature Granulocytes Absolute 0.24 #; Lymphocytes # 3.1 10*3/uL (1.4-4.0); Lymphocytes % 18.6 % (21.3-54.2); Mean Corpuscular HGB Conc 31.1 GM/DL (32-36); Mean Corpuscular Volume 97.6 FL (87-102); Mean Platelet Volume 10.5 FL (9.6-12.0); Monocytes % 11.8 % (1.7-12.7); NRBC # 0.09 10*3/uL; Neutrophils % 64.5 % (38.7-73.9); Platelet Count 477 T/CUMM (130-400); Red Blood Count 2.93 MC/CUMM (3.8-5.5); Red Cell Distribution Width 14.8 % (9.3-17.3); White Blood Count 16.7 T/CUMM (4-12)
[2019-01-02 06:27] LABS: Calcium 9.7 MG/DL (8.5-10.1); Osmolality,Calculated 307.4 MOS/KG (273-304)
[2019-01-02] MEDS: INSULIN LISPRO 100 UNIT/ML SUBCUT SCH ×4 (08:27→21:03)
[2019-01-02] MEDS: FAMOTIDINE 20 MG/2 ML VIAL IV SCH (08:28)
[2019-01-02] MEDS: CARVEDILOL 12.5 MG TABLET PO SCH ×2 (08:28→16:58)
[2019-01-02] MEDS: ISOSORBIDE DINITRATE 10 MG TABLET PO SCH ×3 (08:28→21:14)
[2019-01-02] MEDS: amLODIPine 5 MG TABLET PO SCH (08:28)
[2019-01-02] MEDS: hydrALAZINE 10 MG TABLET PO SCH ×3 (08:28→21:14)
[2019-01-02] MEDS: ASPIRIN CHEW 81 MG TABLET PO SCH (08:28)
[2019-01-02] MEDS: ATORVASTATIN 10 MG TABLET PO SCH (21:14)
[2019-01-02] MEDS: ENOXAPARIN 30 MG/0.3 ML SYRINGE SUBCUT SCH (21:15)
[2019-01-03] MEDS: ALBUTEROL/IPRATROPIUM 3 ML NEB RESP TX SCH ×3 (04:17→11:06)
[2019-01-03 07:21] LABS: Amorphous Crystals,Urine Occasional /HPF (Few); Apearance,Urine Slightly Hazy (Clear); Bacteria,Urine Occasional /HPF (Few); Bilirubin,Urine Negative (Negative); Blood, Urine Small mg/dL (Negative); Glucose,Urine (UA) Negative (Negative); Ketones,Urine 5 mg/dL (Negative); Mucus,Urine Occasional /LPF (Occasional); Nitrite,Urine Negative (Negative); Protein,Urine >=500 MG/DL; RBC,Urine 6 /HPF (0-4); Squamous Epithelial Cell,Urine Occasional /HPF (0-10); Urine Color Yellow (Yellow); Urine Specific Gravity 1.014 (1.001-1.035); Urine Urobilinogen < 2.0 EU/DL (0.2-1.0); WBC,Urine 21 /HPF (0-6)
[2019-01-03] MEDS: INSULIN LISPRO 100 UNIT/ML SUBCUT SCH ×2 (07:22→13:08)
[2019-01-03] MEDS: ISOSORBIDE DINITRATE 10 MG TABLET PO SCH (08:51)
[2019-01-03] MEDS: amLODIPine 5 MG TABLET PO SCH (08:52)
[2019-01-03] MEDS: hydrALAZINE 10 MG TABLET PO SCH (08:52)
[2019-01-03] MEDS: ASPIRIN CHEW 81 MG TABLET PO SCH (08:52)
[2019-01-03] MEDS: CARVEDILOL 12.5 MG TABLET PO SCH (08:52)
[2019-01-03] MEDS: FAMOTIDINE 20 MG/2 ML VIAL IV SCH (08:53)
[2019-01-03] MEDS ORDERED: FUROSEMIDE 40 MG TABLET PO SCH (09:00)
[2019-01-03 12:07] VITALS: BP 111/65
== END 2019-01-03 13:32 | DRG 207 ==
LOC: EDBD → EDUNIT# → N.ED 18:01 → SUPCPDRO 19:48 → SUATTDRO 19:48 → N.EDINP 19:48 → N.ICU 20:57 → N.2E 12-29 12:51
PROVIDERS: ADMIT Internal Medicine; ATTEND Internal Medicine

== ENCOUNTER 2019-03-08 13:32 | Inpatient (IN) ==
[2019-03-08] MEDS ORDERED: CLINDAMYCIN INJ 900 MG in PREMIX 1 EACH IV STA (14:06)
[2019-03-08] MEDS ORDERED: KETOROLAC 30 MG/1 ML VIAL IV STA (14:06)
[2019-03-08] MEDS ORDERED: DEXTROSE 50% 25 GM/50 ML VIAL IV PRN (14:48)
[2019-03-08] MEDS ORDERED: HYDROmorphone 2 MG/1 ML VIAL IV PRN ×2 (14:48)
[2019-03-08] MEDS ORDERED: ALBUTEROL/IPRATROPIUM 3 ML NEB RESP TX PRN (14:48)
[2019-03-08] MEDS ORDERED: BISACODYL 5 MG TABLET PO PRN (14:48)
[2019-03-08] MEDS ORDERED: ACETAMINOPHEN 325 MG TABLET PO PRN (14:48)
[2019-03-08] MEDS ORDERED: ONDANSETRON 4 MG/2 ML VIAL IV PRN (14:48)
[2019-03-08] MEDS ORDERED: GLUCAGON 1 MG VIAL IM PRN (14:48)
[2019-03-08 15:33] LABS: Basophils # 0.1 10*3/uL (0.0-0.2); Basophils % 0.7 % (0.0-0.8); Eosinophils # 0.1 10*3/uL (0.0-0.87); Eosinophils % 1.7 % (0.00-10.9); Hematocrit 34.3 VOL% (35.7-47.0); Hemoglobin 10.7 GM/DL (12.0-16.0); Immature Granulocytes % 0.4 %; Immature Granulocytes Absolute 0.03 #; Lymphocytes # 1.9 10*3/uL (1.4-4.0); Lymphocytes % 22.5 % (21.3-54.2); Mean Corpuscular HGB Conc 31.2 GM/DL (32-36); Mean Corpuscular Volume 92.5 FL (87-102); Mean Platelet Volume 9.5 FL (9.6-12.0); Monocytes % 7.7 % (1.7-12.7); Platelet Count 403 T/CUMM (130-400); Red Blood Count 3.71 MC/CUMM (3.8-5.5); Red Cell Distribution Width 16.8 % (9.3-17.3); White Blood Count 8.5 T/CUMM (4-12)
[2019-03-08 15:42] LABS: INR 0.9; PT Patient Result 9.9 SECS (9.6-12.2); Partial Thromboplastin Time 29.4 SECS (20.8-36.0)
[2019-03-08 16:12] LABS: Alanine Aminotransferase 21 U/L (13-56); Albumin 3.2 G/DL (3.4-5.0); Alkaline Phosphatase 102 U/L (45-117); Aspartate Amino Transferase 21 U/L (0-37); Bilirubin,Total < 0.39 MG/DL (0.2-1.0); Blood Urea Nitrogen 37 MG/DL (7-18); Estimated Glom Filtration Rate 20 ML/MIN; Glucose 105 MG/DL (74-106); Osmolality,Calculated 289.3 MOS/KG (273-304); Total Protein 8.3 G/DL (6.4-8.3); Troponin I 0.034 NG/ML (0.00-0.045)
[2019-03-08] MEDS ORDERED: INSULIN LISPRO 100 UNIT/ML SUBCUT SCH (16:30)
[2019-03-08 16:35] LABS: Sedimentation Rate-Westergren 56 MM/HR (0-30)
[2019-03-08] MEDS ORDERED: FEXOFENADINE 180 MG TABLET PO PRN (16:57)
[2019-03-08] MEDS ORDERED: hydrALAZINE 20 MG/1 ML VIAL IV PRN (16:58)
[2019-03-08] MEDS: carvediloL 25 MG TABLET PO SCH (17:55)
[2019-03-08] MEDS: PIPERACILLIN/TAZOBACTAM 3,375 MG in SODIUM CHLORIDE 0.9% 100 ML IV SCH (18:39)
[2019-03-08] MEDS: LACTATED RINGERS 1,000 ML IV SCH (18:39)
[2019-03-08] MEDS: ISOSORBIDE DINITRATE 10 MG TABLET PO SCH (20:12)
[2019-03-08] MEDS: ATORVASTATIN 10 MG TABLET PO SCH (20:12)
[2019-03-08] MEDS: hydrALAZINE 10 MG TABLET PO SCH (20:12)
[2019-03-08] MEDS: diphenhydrAMINE CAP 25 MG CAPSULE PO SCH (20:12)
[2019-03-09] MEDS: PIPERACILLIN/TAZOBACTAM 3,375 MG in SODIUM CHLORIDE 0.9% 100 ML IV SCH ×4 (02:20→17:57)
[2019-03-09 05:11] LABS: Basophils % 0.5 % (0.0-0.8); Eosinophils # 0.2 10*3/uL (0.0-0.87); Eosinophils % 2.1 % (0.00-10.9); Hematocrit 28.5 VOL% (35.7-47.0); Hemoglobin 8.9 GM/DL (12.0-16.0); Immature Granulocytes % 0.4 %; Immature Granulocytes Absolute 0.03 #; Lymphocytes % 27.1 % (21.3-54.2); Mean Corpuscular HGB Conc 31.2 GM/DL (32-36); Mean Corpuscular Volume 93.4 FL (87-102); Mean Platelet Volume 9.9 FL (9.6-12.0); Monocytes % 11.2 % (1.7-12.7); Neutrophils % 58.7 % (38.7-73.9); Platelet Count 356 T/CUMM (130-400); Red Blood Count 3.05 MC/CUMM (3.8-5.5); Red Cell Distribution Width 16.5 % (9.3-17.3); White Blood Count 7.3 T/CUMM (4-12)
[2019-03-09 05:45] LABS: Alanine Aminotransferase 17 U/L (13-56); Albumin 2.9 G/DL (3.4-5.0); Alkaline Phosphatase 85 U/L (45-117); Aspartate Amino Transferase 14 U/L (0-37); Bilirubin,Total < 0.39 MG/DL (0.2-1.0); Blood Urea Nitrogen 45 MG/DL (7-18); Estimated Glom Filtration Rate 19 ML/MIN; Glucose 128 MG/DL (74-106); Osmolality,Calculated 303.6 MOS/KG (273-304); Total Protein 6.8 G/DL (6.4-8.3)
[2019-03-09] MEDS: hydrALAZINE 10 MG TABLET PO SCH ×4 (07:28→20:18)
[2019-03-09] MEDS: carvediloL 25 MG TABLET PO SCH ×2 (07:28→16:16)
[2019-03-09] MEDS: ISOSORBIDE DINITRATE 10 MG TABLET PO SCH ×4 (07:29→20:18)
[2019-03-09] MEDS ORDERED: LIDOCAINE 1% 20 ML VIAL ONE (07:37)
[2019-03-09] MEDS ORDERED: BUPIVACAINE MPF 0.25% 30 ML VIAL ONE (07:37)
[2019-03-09] MEDS: PANTOPRAZOLE 40 MG TABLET PO SCH (08:25)
[2019-03-09] MEDS: FUROSEMIDE 40 MG TABLET PO SCH (08:25)
[2019-03-09] MEDS: PYRIDOXINE 100 MG TABLET PO SCH (08:26)
[2019-03-09] MEDS ORDERED: PROPOFOL 200 MG/20 ML VIAL IV ONE (08:30)
[2019-03-09] MEDS ORDERED: LIDOCAINE 2% 5 ML VIAL ONE (08:30)
[2019-03-09] MEDS ORDERED: SEVOFLURANE 1 UNIT/15 MINUTE INH ONE (08:30)
[2019-03-09] MEDS ORDERED: fentaNYL 100 MCG/2 ML VIAL ONE (08:31)
[2019-03-09] MEDS ORDERED: MIDAZOLAM 2 MG/2 ML VIAL ONE (08:31)
[2019-03-09] MEDS ORDERED: PHENYLEPHRINE 1 MG/10 ML SYRINGE IV ONE (08:31)
[2019-03-09] MEDS ORDERED: POTASSIUM CHLORIDE 20 MEQ TABLET PO ONE (11:26)
[2019-03-09 14:07] LABS: Apearance,Urine CLEAR (Clear); Bacteria,Urine Occasional /HPF (Few); Bilirubin,Urine Negative (Negative); Blood, Urine Small mg/dL (Negative); Glucose,Urine (UA) Negative (Negative); Ketones,Urine Negative (Negative); Mucus,Urine Occasional /LPF (Occasional); Nitrite,Urine Negative (Negative); Protein,Urine >=500 MG/DL; RBC,Urine <1 /HPF (0-4); Squamous Epithelial Cell,Urine Occasional /HPF (0-10); Urine Color Yellow (Yellow); Urine Specific Gravity 1.019 (1.001-1.035); Urine Urobilinogen < 2.0 EU/DL (0.2-1.0); WBC,Urine 2 /HPF (0-6)
[2019-03-09 15:05] LABS: Barbiturates Screen,Urine Negative (Negative); Benzodiazepines Screen,Urine Positive (Negative); Cannabinoid Screen,Urine Negative (Negative); Opiate Screen,Urine Positive (Negative); Phencyclidine Screen,Urine Negative (Negative)
[2019-03-09] MEDS: diphenhydrAMINE CAP 25 MG CAPSULE PO SCH (20:18)
[2019-03-09] MEDS: ATORVASTATIN 10 MG TABLET PO SCH (20:18)
[2019-03-10] MEDS: PIPERACILLIN/TAZOBACTAM 3,375 MG in SODIUM CHLORIDE 0.9% 100 ML IV SCH ×3 (01:34→17:06)
[2019-03-10 04:28] LABS: Basophils % 0.3 % (0.0-0.8); Eosinophils # 0.3 10*3/uL (0.0-0.87); Eosinophils % 3.2 % (0.00-10.9); Hematocrit 28.3 VOL% (35.7-47.0); Hemoglobin 8.6 GM/DL (12.0-16.0); Immature Granulocytes % 0.3 %; Immature Granulocytes Absolute 0.03 #; Lymphocytes # 1.3 10*3/uL (1.4-4.0); Lymphocytes % 14.9 % (21.3-54.2); Mean Corpuscular HGB Conc 30.4 GM/DL (32-36); Mean Corpuscular Volume 94.3 FL (87-102); Mean Platelet Volume 9.8 FL (9.6-12.0); Monocytes % 9.7 % (1.7-12.7); Neutrophils % 71.6 % (38.7-73.9); Platelet Count 358 T/CUMM (130-400); Red Cell Distribution Width 16.8 % (9.3-17.3); White Blood Count 8.8 T/CUMM (4-12)
[2019-03-10 04:50] LABS: Albumin 2.7 G/DL (3.4-5.0); Bilirubin,Total 0.4 MG/DL (0.2-1.0); Calcium 8.7 MG/DL (8.5-10.1); Osmolality,Calculated 305.3 MOS/KG (273-304); Risk Ratio 3.08; Total Protein 6.5 G/DL (6.4-8.3)
[2019-03-10] MEDS: carvediloL 25 MG TABLET PO SCH ×2 (08:37→17:05)
[2019-03-10] MEDS: ISOSORBIDE DINITRATE 10 MG TABLET PO SCH ×3 (08:37→21:39)
[2019-03-10] MEDS: FUROSEMIDE 40 MG TABLET PO SCH (08:37)
[2019-03-10] MEDS: PYRIDOXINE 100 MG TABLET PO SCH (08:37)
[2019-03-10] MEDS: PANTOPRAZOLE 40 MG TABLET PO SCH (08:38)
[2019-03-10] MEDS: hydrALAZINE 10 MG TABLET PO SCH ×3 (08:38→21:38)
[2019-03-10] MEDS: LACTATED RINGERS 1,000 ML IV SCH (08:41)
[2019-03-10] MEDS ORDERED: FLUCONAZOLE 150 MG TABLET PO ONE (12:00)
[2019-03-10 13:07] LABS: % Iron Saturation 24.7 % (18-50); Ferritin 370.2 ng/ml (8-252)
[2019-03-10] MEDS: GABAPENTIN 100 MG CAPSULE PO SCH ×2 (14:38→21:38)
[2019-03-10] MEDS ORDERED: SIMETHICONE CHEW 125 MG TABLET PO PRN (19:02)
[2019-03-10] MEDS: diphenhydrAMINE CAP 25 MG CAPSULE PO SCH (21:38)
[2019-03-10] MEDS: rOPINIRole 0.25 MG TABLET PO SCH (21:38)
[2019-03-10] MEDS: ATORVASTATIN 10 MG TABLET PO SCH (21:39)
[2019-03-11 05:23] LABS: Basophils % 0.3 % (0.0-0.8); Eosinophils # 0.2 10*3/uL (0.0-0.87); Eosinophils % 3.1 % (0.00-10.9); Hematocrit 28.4 VOL% (35.7-47.0); Hemoglobin 8.6 GM/DL (12.0-16.0); Immature Granulocytes % 0.4 %; Immature Granulocytes Absolute 0.03 #; Lymphocytes # 1.2 10*3/uL (1.4-4.0); Lymphocytes % 15.2 % (21.3-54.2); Mean Corpuscular HGB Conc 30.3 GM/DL (32-36); Mean Platelet Volume 9.9 FL (9.6-12.0); Monocytes % 10.5 % (1.7-12.7); Neutrophils % 70.5 % (38.7-73.9); Platelet Count 374 T/CUMM (130-400); Red Blood Count 2.99 MC/CUMM (3.8-5.5); White Blood Count 7.8 T/CUMM (4-12)
[2019-03-11 05:53] LABS: Alanine Aminotransferase 16 U/L (13-56); Albumin 2.4 G/DL (3.4-5.0); Alkaline Phosphatase 67 U/L (45-117); Aspartate Amino Transferase 14 U/L (0-37); Bilirubin,Total < 0.39 MG/DL (0.2-1.0); Blood Urea Nitrogen 35 MG/DL (7-18); Calcium 8.6 MG/DL (8.5-10.1); Estimated Glom Filtration Rate 21 ML/MIN; Glucose 122 MG/DL (74-106); Osmolality,Calculated 296.7 MOS/KG (273-304); Total Protein 6.4 G/DL (6.4-8.3)
[2019-03-11] MEDS: PIPERACILLIN/TAZOBACTAM 3,375 MG in SODIUM CHLORIDE 0.9% 100 ML IV SCH ×3 (06:18→23:30)
[2019-03-11] MEDS: FUROSEMIDE 40 MG TABLET PO SCH (08:51)
[2019-03-11] MEDS: ISOSORBIDE DINITRATE 10 MG TABLET PO SCH ×3 (08:51→20:39)
[2019-03-11] MEDS: PYRIDOXINE 100 MG TABLET PO SCH (08:51)
[2019-03-11] MEDS: PANTOPRAZOLE 40 MG TABLET PO SCH (08:52)
[2019-03-11] MEDS: GABAPENTIN 100 MG CAPSULE PO SCH ×3 (08:52→20:40)
[2019-03-11] MEDS: carvediloL 25 MG TABLET PO SCH ×2 (08:52→16:18)
[2019-03-11] MEDS: hydrALAZINE 10 MG TABLET PO SCH ×3 (08:52→20:40)
[2019-03-11] MEDS ORDERED: POTASSIUM CHLORIDE 20 MEQ TABLET PO ONE (13:59)
[2019-03-11] MEDS: diphenhydrAMINE CAP 25 MG CAPSULE PO SCH (20:40)
[2019-03-11] MEDS: ATORVASTATIN 10 MG TABLET PO SCH (20:40)
[2019-03-11] MEDS: rOPINIRole 0.25 MG TABLET PO SCH (20:41)
[2019-03-12] MEDS: PIPERACILLIN/TAZOBACTAM 3,375 MG in SODIUM CHLORIDE 0.9% 100 ML IV SCH (06:38)
[2019-03-12] MEDS: FUROSEMIDE 40 MG TABLET PO SCH (08:33)
[2019-03-12] MEDS: GABAPENTIN 100 MG CAPSULE PO SCH (08:33)
[2019-03-12] MEDS: carvediloL 25 MG TABLET PO SCH (08:33)
[2019-03-12] MEDS: hydrALAZINE 10 MG TABLET PO SCH (08:33)
[2019-03-12] MEDS: PANTOPRAZOLE 40 MG TABLET PO SCH (08:33)
[2019-03-12] MEDS: ISOSORBIDE DINITRATE 10 MG TABLET PO SCH (08:33)
[2019-03-12] MEDS: PYRIDOXINE 100 MG TABLET PO SCH (08:33)
[2019-03-12 11:16] VITALS: BP 177/80
== END 2019-03-12 13:08 | disposition swing bed (61) | DRG 240 ==
LOC: N.ED 13:32 → N.EDINP 14:48 → N.3E 15:25
PROVIDERS: ADMIT Surgery; ATTEND Surgery

== ENCOUNTER 2019-04-10 05:51 | Inpatient (IN) ==
[2019-04-09 12:14] LABS: Basophils % 0.3 % (0.0-0.8); Eosinophils # 0.1 10*3/uL (0.0-0.87); Hematocrit 27.2 VOL% (35.7-47.0); Hemoglobin 8.2 GM/DL (12.0-16.0); Immature Granulocytes % 0.3 %; Immature Granulocytes Absolute 0.03 #; Lymphocytes % 20.3 % (21.3-54.2); Mean Corpuscular HGB Conc 30.1 GM/DL (32-36); Mean Corpuscular Volume 94.8 FL (87-102); Mean Platelet Volume 9.9 FL (9.6-12.0); Monocytes % 8.6 % (1.7-12.7); Neutrophils % 69.5 % (38.7-73.9); Platelet Count 435 T/CUMM (130-400); Red Blood Count 2.87 MC/CUMM (3.8-5.5); Red Cell Distribution Width 15.4 % (9.3-17.3); White Blood Count 9.6 T/CUMM (4-12)
[2019-04-09 12:27] LABS: Calcium 9.3 MG/DL (8.5-10.1); Osmolality,Calculated 293.8 MOS/KG (273-304)
[2019-04-10] MEDS ORDERED: ceFAZolin 1,000 MG in SYRINGE 1 EACH IV ONE (07:00)
[2019-04-10] MEDS ORDERED: LACTATED RINGERS 1,000 ML IV SCH (07:30)
[2019-04-10] MEDS ORDERED: ceFAZolin 1,000 MG VIAL ONE (08:03)
[2019-04-10] MEDS ORDERED: PROPOFOL 200 MG/20 ML VIAL IV ONE (08:18)
[2019-04-10] MEDS ORDERED: fentaNYL 100 MCG/2 ML VIAL ONE (08:19)
[2019-04-10] MEDS ORDERED: SEVOFLURANE 1 UNIT/15 MINUTE INH ONE (08:19)
[2019-04-10] MEDS ORDERED: LIDOCAINE 2% 5 ML VIAL ONE (08:19)
[2019-04-10] MEDS ORDERED: HYDROmorphone 2 MG/1 ML VIAL ONE (08:25)
[2019-04-10] MEDS ORDERED: ONDANSETRON 4 MG/2 ML VIAL ONE (08:25)
[2019-04-10] MEDS ORDERED: ONDANSETRON 4 MG/2 ML VIAL IV PRN ×2 (08:26→08:59)
[2019-04-10] MEDS: HYDROmorphone 2 MG/1 ML VIAL IV PRN ×6 (08:30→20:40)
[2019-04-10] MEDS ORDERED: BISACODYL 5 MG TABLET PO PRN (08:59)
[2019-04-10] MEDS ORDERED: ALBUTEROL/IPRATROPIUM 3 ML NEB RESP TX PRN (08:59)
[2019-04-10] MEDS ORDERED: ACETAMINOPHEN 325 MG TABLET PO PRN (08:59)
[2019-04-10] MEDS: PANTOPRAZOLE 40 MG TABLET PO SCH (10:38)
[2019-04-10] MEDS ORDERED: DEXTROSE 10% 25 GM/250 ML BAG IV PRN (10:58)
[2019-04-10] MEDS ORDERED: GLUCAGON 1 MG VIAL IM PRN (10:58)
[2019-04-10 11:56] LABS: Risk Ratio 3.82; Thyroid Stimulating Hormone 1.61 uIU/ml (0.358-3.74); VLDL CHOLESTEROL 27.2 MG/DL
[2019-04-10] MEDS: PIPERACILLIN/TAZOBACTAM 3,375 MG in SODIUM CHLORIDE 0.9% 100 ML IV SCH ×2 (13:24→20:35)
[2019-04-10] MEDS: FEXOFENADINE 180 MG TABLET PO PRN (13:27)
[2019-04-10] MEDS: GABAPENTIN 100 MG CAPSULE PO SCH ×2 (15:30→20:36)
[2019-04-10] MEDS: carvediloL 25 MG TABLET PO SCH (17:01)
[2019-04-10] MEDS: SKIN HEALING OINT (AQUAPHOR) 50 GM TUBE TOP SCH (17:01)
[2019-04-10] MEDS: POTASSIUM CHLORIDE 20 MEQ TABLET PO PRN ×3 (19:29→22:43)
[2019-04-10 19:57] LABS: Apearance,Urine Slightly Hazy (Clear); Bacteria,Urine Occasional /HPF (Few); Bilirubin,Urine Negative (Negative); Blood, Urine Small mg/dL (Negative); Glucose,Urine (UA) Negative (Negative); Ketones,Urine Negative (Negative); Mucus,Urine Occasional /LPF (Occasional); Nitrite,Urine Negative (Negative); Protein,Urine >=500 MG/DL; RBC,Urine 1 /HPF (0-4); Squamous Epithelial Cell,Urine Occasional /HPF (0-10); Urine Color Yellow (Yellow); Urine Specific Gravity 1.017 (1.001-1.035); Urine Urobilinogen < 2.0 EU/DL (0.2-1.0); WBC,Urine 3 /HPF (0-6)
[2019-04-10] MEDS ORDERED: hydrALAZINE 25 MG TABLET ONE (20:16)
[2019-04-10] MEDS: ATORVASTATIN 10 MG TABLET PO SCH (20:36)
[2019-04-10] MEDS: diphenhydrAMINE CAP 25 MG CAPSULE PO SCH (20:36)
[2019-04-10] MEDS: ISOSORBIDE DINITRATE 10 MG TABLET PO SCH (20:36)
[2019-04-10] MEDS: hydrALAZINE 10 MG TABLET PO SCH (20:45)
[2019-04-10] MEDS ORDERED: hydrALAZINE 10 MG TABLET PO SCH (21:00)
[2019-04-10] MEDS ORDERED: SODIUM BICARB INJ 50 MEQ, POTASSIUM CHLORIDE INJ 20 MEQ in DEXTROSE 5% 1,000 ML IV SCH (23:00)
[2019-04-10] MEDS: ALUMINUM/MAGNES/SIMETH MAX STR 30 ML UDCUP PO PRN (23:05)
[2019-04-11] MEDS: ENOXAPARIN 30 MG/0.3 ML SYRINGE SUBCUT SCH (02:34)
[2019-04-11] MEDS: diphenhydrAMINE CAP 25 MG CAPSULE PO SCH ×2 (02:34→20:17)
[2019-04-11] MEDS: PIPERACILLIN/TAZOBACTAM 3,375 MG in SODIUM CHLORIDE 0.9% 100 ML IV SCH ×3 (03:34→20:19)
[2019-04-11 04:45] LABS: Basophils # 0.1 10*3/uL (0.0-0.2); Basophils % 0.6 % (0.0-0.8); Eosinophils # 0.2 10*3/uL (0.0-0.87); Eosinophils % 2.2 % (0.00-10.9); Hematocrit 26.9 VOL% (35.7-47.0); Immature Granulocytes % 0.3 %; Immature Granulocytes Absolute 0.03 #; Lymphocytes # 1.3 10*3/uL (1.4-4.0); Lymphocytes % 14.8 % (21.3-54.2); Mean Corpuscular HGB Conc 29.7 GM/DL (32-36); Mean Corpuscular Volume 95.7 FL (87-102); Mean Platelet Volume 10.3 FL (9.6-12.0); Monocytes % 8.9 % (1.7-12.7); Neutrophils % 73.2 % (38.7-73.9); Platelet Count 372 T/CUMM (130-400); Red Blood Count 2.81 MC/CUMM (3.8-5.5); Red Cell Distribution Width 15.3 % (9.3-17.3); White Blood Count 9.1 T/CUMM (4-12)
[2019-04-11 05:10] LABS: Osmolality,Calculated 290.1 MOS/KG (273-304)
[2019-04-11] MEDS ORDERED: DEXTROSE 50% 25 GM/50 ML VIAL IV PRN (06:22)
[2019-04-11] MEDS ORDERED: fentaNYL 100 MCG/2 ML VIAL IV ONE (08:00)
[2019-04-11] MEDS ORDERED: MIDAZOLAM 2 MG/2 ML VIAL IV ONE (08:00)
[2019-04-11] MEDS ORDERED: diphenhydrAMINE CAP 25 MG CAPSULE PO PRN (08:04)
[2019-04-11] MEDS: hydrALAZINE 10 MG TABLET PO SCH ×2 (08:54→20:18)
[2019-04-11] MEDS: carvediloL 25 MG TABLET PO SCH ×2 (08:54→16:00)
[2019-04-11] MEDS: ISOSORBIDE DINITRATE 10 MG TABLET PO SCH ×2 (08:54→20:18)
[2019-04-11] MEDS: SKIN HEALING OINT (AQUAPHOR) 50 GM TUBE TOP SCH (08:56)
[2019-04-11] MEDS: PANTOPRAZOLE 40 MG TABLET PO SCH (08:56)
[2019-04-11] MEDS: GABAPENTIN 100 MG CAPSULE PO SCH ×3 (08:56→20:18)
[2019-04-11] MEDS: PYRIDOXINE 100 MG TABLET PO SCH (08:56)
[2019-04-11] MEDS: FUROSEMIDE 40 MG TABLET PO SCH (08:56)
[2019-04-11] MEDS ORDERED: fentaNYL 100 MCG/2 ML VIAL ONE (10:00)
[2019-04-11] MEDS ORDERED: MIDAZOLAM 2 MG/2 ML VIAL ONE (10:01)
[2019-04-11] MEDS ORDERED: HEPARIN/NACL 0.9% 2 UNITS/ML 2,000 ML IV ONE (10:01)
[2019-04-11] MEDS ORDERED: hydrALAZINE 20 MG/1 ML VIAL ONE (11:02)
[2019-04-11] MEDS ORDERED: hydrALAZINE 20 MG/1 ML VIAL IV PRN (11:04)
[2019-04-11] MEDS: HYDROmorphone 2 MG/1 ML VIAL IV PRN ×2 (13:59→18:20)
[2019-04-11] MEDS: ATORVASTATIN 10 MG TABLET PO SCH (20:18)
[2019-04-12] MEDS: ENOXAPARIN 30 MG/0.3 ML SYRINGE SUBCUT SCH (03:30)
[2019-04-12] MEDS: PIPERACILLIN/TAZOBACTAM 3,375 MG in SODIUM CHLORIDE 0.9% 100 ML IV SCH ×3 (03:31→21:16)
[2019-04-12 08:10] LABS: Calcium 8.6 MG/DL (8.5-10.1); Osmolality,Calculated 289.3 MOS/KG (273-304)
[2019-04-12] MEDS: FUROSEMIDE 40 MG TABLET PO SCH (08:55)
[2019-04-12] MEDS: PYRIDOXINE 100 MG TABLET PO SCH (08:56)
[2019-04-12] MEDS: ISOSORBIDE DINITRATE 10 MG TABLET PO SCH ×2 (08:56→21:15)
[2019-04-12] MEDS: GABAPENTIN 100 MG CAPSULE PO SCH ×3 (08:57→21:15)
[2019-04-12] MEDS: PANTOPRAZOLE 40 MG TABLET PO SCH (08:57)
[2019-04-12] MEDS: carvediloL 25 MG TABLET PO SCH ×2 (08:58→17:29)
[2019-04-12] MEDS: HYDROmorphone 2 MG/1 ML VIAL IV PRN ×2 (08:58→17:37)
[2019-04-12] MEDS: FEXOFENADINE 180 MG TABLET PO PRN (09:08)
[2019-04-12] MEDS: hydrALAZINE 10 MG TABLET PO SCH ×2 (09:08→21:15)
[2019-04-12 09:14] LABS: Basophils % 0.4 % (0.0-0.8); Eosinophils # 0.3 10*3/uL (0.0-0.87); Hematocrit 24.9 VOL% (35.7-47.0); Hemoglobin 7.5 GM/DL (12.0-16.0); Immature Granulocytes % 0.5 %; Immature Granulocytes Absolute 0.04 #; Lymphocytes # 1.1 10*3/uL (1.4-4.0); Lymphocytes % 13.1 % (21.3-54.2); Mean Corpuscular HGB Conc 30.1 GM/DL (32-36); Mean Corpuscular Volume 96.1 FL (87-102); Mean Platelet Volume 9.7 FL (9.6-12.0); Monocytes % 9.1 % (1.7-12.7); Neutrophils % 73.9 % (38.7-73.9); Platelet Count 366 T/CUMM (130-400); Red Blood Count 2.59 MC/CUMM (3.8-5.5); Red Cell Distribution Width 15.5 % (9.3-17.3); White Blood Count 8.3 T/CUMM (4-12)
[2019-04-12] MEDS ORDERED: SODIUM CHLORIDE 0.9% 1,000 ML IV PRN (09:42)
[2019-04-12] MEDS: SKIN HEALING OINT (AQUAPHOR) 50 GM TUBE TOP SCH (09:56)
[2019-04-12] MEDS ORDERED: FLUCONAZOLE 150 MG TABLET PO ONE (16:43)
[2019-04-12] MEDS: NYSTATIN 500,000 UNIT/5 ML UDCUP SWISH/SWAL SCH ×2 (17:29→21:15)
[2019-04-12] MEDS: diphenhydrAMINE CAP 25 MG CAPSULE PO SCH (21:16)
[2019-04-12] MEDS: ATORVASTATIN 10 MG TABLET PO SCH (21:16)
[2019-04-13] MEDS: ENOXAPARIN 30 MG/0.3 ML SYRINGE SUBCUT SCH (03:05)
[2019-04-13 05:09] LABS: Basophils % 0.5 % (0.0-0.8); Eosinophils # 0.2 10*3/uL (0.0-0.87); Eosinophils % 3.2 % (0.00-10.9); Hematocrit 26.7 VOL% (35.7-47.0); Immature Granulocytes % 0.4 %; Immature Granulocytes Absolute 0.03 #; Lymphocytes # 1.1 10*3/uL (1.4-4.0); Lymphocytes % 15.5 % (21.3-54.2); Mean Corpuscular Volume 96.4 FL (87-102); Mean Platelet Volume 9.7 FL (9.6-12.0); Monocytes % 12.2 % (1.7-12.7); Neutrophils % 68.2 % (38.7-73.9); Platelet Count 333 T/CUMM (130-400); Red Blood Count 2.77 MC/CUMM (3.8-5.5); White Blood Count 7.3 T/CUMM (4-12)
[2019-04-13] MEDS: PIPERACILLIN/TAZOBACTAM 3,375 MG in SODIUM CHLORIDE 0.9% 100 ML IV SCH ×3 (05:09→21:22)
[2019-04-13 05:42] LABS: Calcium 8.4 MG/DL (8.5-10.1); Osmolality,Calculated 290.1 MOS/KG (273-304)
[2019-04-13] MEDS: PYRIDOXINE 100 MG TABLET PO SCH (08:30)
[2019-04-13] MEDS: GABAPENTIN 100 MG CAPSULE PO SCH ×3 (08:30→21:22)
[2019-04-13] MEDS: ISOSORBIDE DINITRATE 10 MG TABLET PO SCH ×2 (08:30→21:22)
[2019-04-13] MEDS: hydrALAZINE 10 MG TABLET PO SCH ×2 (08:31→21:22)
[2019-04-13] MEDS: carvediloL 25 MG TABLET PO SCH ×2 (08:31→17:08)
[2019-04-13] MEDS: PANTOPRAZOLE 40 MG TABLET PO SCH (08:31)
[2019-04-13] MEDS: NYSTATIN 500,000 UNIT/5 ML UDCUP SWISH/SWAL SCH ×4 (08:34→21:22)
[2019-04-13] MEDS: HYDROmorphone 2 MG/1 ML VIAL IV PRN (09:03)
[2019-04-13] MEDS: SKIN HEALING OINT (AQUAPHOR) 50 GM TUBE TOP SCH (14:22)
[2019-04-13] MEDS: diphenhydrAMINE CAP 25 MG CAPSULE PO SCH (21:22)
[2019-04-13] MEDS: ATORVASTATIN 10 MG TABLET PO SCH (21:22)
[2019-04-14] MEDS: ENOXAPARIN 30 MG/0.3 ML SYRINGE SUBCUT SCH (02:57)
[2019-04-14] MEDS: PIPERACILLIN/TAZOBACTAM 3,375 MG in SODIUM CHLORIDE 0.9% 100 ML IV SCH ×2 (05:05→15:35)
[2019-04-14 05:34] LABS: Basophils % 0.6 % (0.0-0.8); Eosinophils # 0.2 10*3/uL (0.0-0.87); Eosinophils % 2.6 % (0.00-10.9); Hematocrit 25.3 VOL% (35.7-47.0); Hemoglobin 7.6 GM/DL (12.0-16.0); Immature Granulocytes % 0.5 %; Immature Granulocytes Absolute 0.03 #; Lymphocytes % 14.7 % (21.3-54.2); Mean Corpuscular Volume 94.8 FL (87-102); Mean Platelet Volume 10.2 FL (9.6-12.0); Monocytes % 11.5 % (1.7-12.7); Neutrophils % 70.1 % (38.7-73.9); Platelet Count 322 T/CUMM (130-400); Red Blood Count 2.67 MC/CUMM (3.8-5.5); Red Cell Distribution Width 15.8 % (9.3-17.3); White Blood Count 6.5 T/CUMM (4-12)
[2019-04-14 05:53] LABS: Calcium 8.7 MG/DL (8.5-10.1); Osmolality,Calculated 298.7 MOS/KG (273-304)
[2019-04-14] MEDS ORDERED: SODIUM CHLORIDE 0.9% 1,000 ML IV PRN (08:15)
[2019-04-14] MEDS: hydrALAZINE 10 MG TABLET PO SCH (08:48)
[2019-04-14] MEDS: PYRIDOXINE 100 MG TABLET PO SCH (08:48)
[2019-04-14] MEDS: carvediloL 25 MG TABLET PO SCH ×2 (08:49→17:18)
[2019-04-14] MEDS: SKIN HEALING OINT (AQUAPHOR) 50 GM TUBE TOP SCH (08:49)
[2019-04-14] MEDS: PANTOPRAZOLE 40 MG TABLET PO SCH (08:49)
[2019-04-14] MEDS: GABAPENTIN 100 MG CAPSULE PO SCH (08:49)
[2019-04-14] MEDS: ISOSORBIDE DINITRATE 10 MG TABLET PO SCH ×2 (08:49→20:44)
[2019-04-14] MEDS: NYSTATIN 500,000 UNIT/5 ML UDCUP SWISH/SWAL SCH ×4 (10:14→20:43)
[2019-04-14] MEDS: GABAPENTIN 300 MG CAPSULE PO SCH ×2 (15:34→20:43)
[2019-04-14] MEDS ORDERED: LOPERAMIDE 2 MG CAPSULE PO ONE (19:52)
[2019-04-14] MEDS: diphenhydrAMINE CAP 25 MG CAPSULE PO SCH (20:43)
[2019-04-14] MEDS: ATORVASTATIN 10 MG TABLET PO SCH (20:43)
[2019-04-14] MEDS: HYDROmorphone 2 MG/1 ML VIAL IV PRN (20:47)
[2019-04-15] MEDS: ENOXAPARIN 30 MG/0.3 ML SYRINGE SUBCUT SCH (03:18)
[2019-04-15 04:49] LABS: Basophils % 0.5 % (0.0-0.8); Eosinophils # 0.2 10*3/uL (0.0-0.87); Hematocrit 33.6 VOL% (35.7-47.0); Hemoglobin 10.1 GM/DL (12.0-16.0); Immature Granulocytes % 0.3 %; Immature Granulocytes Absolute 0.02 #; Lymphocytes # 1.2 10*3/uL (1.4-4.0); Lymphocytes % 20.1 % (21.3-54.2); Mean Corpuscular HGB Conc 30.1 GM/DL (32-36); Mean Corpuscular Volume 95.2 FL (87-102); Mean Platelet Volume 11.2 FL (9.6-12.0); Monocytes % 11.7 % (1.7-12.7); Neutrophils % 64.4 % (38.7-73.9); Platelet Count 250 T/CUMM (130-400); Red Blood Count 3.53 MC/CUMM (3.8-5.5); Red Cell Distribution Width 17.1 % (9.3-17.3); White Blood Count 6.1 T/CUMM (4-12)
[2019-04-15 04:59] LABS: Calcium 8.9 MG/DL (8.5-10.1); Osmolality,Calculated 295.7 MOS/KG (273-304)
[2019-04-15 05:47] LABS: Eosinophils 3 % (0-10); Hypochromasia 1+; Lymphocytes 20 % (20-55); Platelet Estimate Adequate; Segmented Neutrophils 62 % (50-85); Total Cells Counted 100
[2019-04-15] MEDS: PYRIDOXINE 100 MG TABLET PO SCH (09:45)
[2019-04-15] MEDS: ISOSORBIDE DINITRATE 10 MG TABLET PO SCH ×2 (09:45→21:01)
[2019-04-15] MEDS: SKIN HEALING OINT (AQUAPHOR) 50 GM TUBE TOP SCH (09:45)
[2019-04-15] MEDS: carvediloL 25 MG TABLET PO SCH ×2 (09:45→16:54)
[2019-04-15] MEDS: NYSTATIN 500,000 UNIT/5 ML UDCUP SWISH/SWAL SCH ×4 (09:45→21:02)
[2019-04-15] MEDS: PANTOPRAZOLE 40 MG TABLET PO SCH (09:45)
[2019-04-15] MEDS: GABAPENTIN 300 MG CAPSULE PO SCH ×3 (09:45→21:01)
[2019-04-15] MEDS: FEXOFENADINE 180 MG TABLET PO PRN (09:51)
[2019-04-15] MEDS: hydrALAZINE 20 MG/1 ML VIAL IV PRN (19:15)
[2019-04-15] MEDS: ATORVASTATIN 10 MG TABLET PO SCH (21:01)
[2019-04-15] MEDS: diphenhydrAMINE CAP 25 MG CAPSULE PO SCH (21:01)
[2019-04-15] MEDS: HYDROmorphone 2 MG/1 ML VIAL IV PRN (21:09)
[2019-04-16] MEDS: ENOXAPARIN 30 MG/0.3 ML SYRINGE SUBCUT SCH (03:05)
[2019-04-16] MEDS: hydrALAZINE 20 MG/1 ML VIAL IV PRN ×2 (05:03→12:34)
[2019-04-16] MEDS: carvediloL 25 MG TABLET PO SCH ×2 (07:31→18:08)
[2019-04-16] MEDS: GABAPENTIN 300 MG CAPSULE PO SCH ×3 (08:32→22:11)
[2019-04-16] MEDS: SKIN HEALING OINT (AQUAPHOR) 50 GM TUBE TOP SCH (08:32)
[2019-04-16] MEDS: ISOSORBIDE DINITRATE 10 MG TABLET PO SCH ×2 (08:32→22:10)
[2019-04-16] MEDS: NYSTATIN 500,000 UNIT/5 ML UDCUP SWISH/SWAL SCH ×4 (08:32→22:11)
[2019-04-16] MEDS: amLODIPine 10 MG TABLET PO SCH (08:33)
[2019-04-16] MEDS: PYRIDOXINE 100 MG TABLET PO SCH (08:33)
[2019-04-16] MEDS: PANTOPRAZOLE 40 MG TABLET PO SCH (08:33)
[2019-04-16] MEDS ORDERED: amLODIPine 5 MG TABLET PO SCH (09:00)
[2019-04-16] MEDS ORDERED: LACTATED RINGERS 1,000 ML IV SCH (11:30)
[2019-04-16] MEDS ORDERED: fentaNYL 100 MCG/2 ML VIAL ONE (12:15)
[2019-04-16] MEDS ORDERED: LIDOCAINE 2% 5 ML VIAL ONE (12:15)
[2019-04-16] MEDS ORDERED: SEVOFLURANE 1 UNIT/15 MINUTE INH ONE (12:15)
[2019-04-16] MEDS ORDERED: ONDANSETRON 4 MG/2 ML VIAL ONE ×2 (12:15→12:16)
[2019-04-16] MEDS ORDERED: PROPOFOL 200 MG/20 ML VIAL IV ONE (12:15)
[2019-04-16] MEDS ORDERED: HYDROmorphone 2 MG/1 ML VIAL ONE (12:16)
[2019-04-16] MEDS: HYDROmorphone 2 MG/1 ML VIAL IV PRN ×2 (12:17→12:40)
[2019-04-16] MEDS ORDERED: ONDANSETRON 4 MG/2 ML VIAL IV PRN (12:27)
[2019-04-16] MEDS ORDERED: hydrALAZINE 20 MG/1 ML VIAL ONE (12:33)
[2019-04-16] MEDS: diphenhydrAMINE CAP 25 MG CAPSULE PO SCH (22:10)
[2019-04-16] MEDS: ATORVASTATIN 10 MG TABLET PO SCH (22:10)
[2019-04-16] MEDS: ALUMINUM/MAGNES/SIMETH MAX STR 30 ML UDCUP PO PRN (22:14)
[2019-04-17] MEDS: ENOXAPARIN 30 MG/0.3 ML SYRINGE SUBCUT SCH (02:50)
[2019-04-17] MEDS: carvediloL 25 MG TABLET PO SCH (08:58)
[2019-04-17] MEDS: GABAPENTIN 300 MG CAPSULE PO SCH (08:58)
[2019-04-17] MEDS: ISOSORBIDE DINITRATE 10 MG TABLET PO SCH (08:58)
[2019-04-17] MEDS: PANTOPRAZOLE 40 MG TABLET PO SCH (08:59)
[2019-04-17] MEDS: amLODIPine 10 MG TABLET PO SCH (08:59)
[2019-04-17] MEDS: NYSTATIN 500,000 UNIT/5 ML UDCUP SWISH/SWAL SCH (09:01)
[2019-04-17] MEDS: PYRIDOXINE 100 MG TABLET PO SCH (09:04)
[2019-04-17] MEDS ORDERED: SODIUM HYPOCHLORITE 0.25% IRRIG 473 ML BOTTLE TOP SCH (10:05)
[2019-04-17 10:55] VITALS: BP 176/87
[2019-04-17] MEDS: SKIN HEALING OINT (AQUAPHOR) 50 GM TUBE TOP SCH (12:01)
[2019-04-18] MEDS ORDERED: SODIUM HYPOCHLORITE 0.25% IRRIG 473 ML BOTTLE TOP SCH (09:00)
== END 2019-04-17 11:45 | disposition swing bed (61) | DRG 253 ==
LOC: N.SDSINP 05:51 → N.OR 05:51 → N.SDSINP 06:08 → OBSVTOIN 08:59 → N.3E 09:23
PROVIDERS: ADMIT Surgery; ATTEND Surgery

== ENCOUNTER 2020-07-23 17:25 | Inpatient (IN) ==
[2020-07-23] MEDS ORDERED: hydrALAZINE 20 MG/1 ML VIAL IV STA (18:31)
[2020-07-23] MEDS ORDERED: FUROSEMIDE 40 MG/4 ML VIAL IV STA (18:31)
[2020-07-23] MEDS ORDERED: NITROGLYCERIN 2% OINT 1 INCH/GM PACK TOP STA (18:31)
[2020-07-23] MEDS ORDERED: ALBUTEROL/IPRATROPIUM 3 ML NEB RESP TX STA (18:31)
[2020-07-23] MEDS ORDERED: ONDANSETRON 4 MG/2 ML VIAL IV STA (18:31)
[2020-07-23 18:45] LABS: Basophils # 0.1 10*3/uL (0.0-0.2); Basophils % 0.7 % (0.0-0.8); Eosinophils # 0.2 10*3/uL (0.0-0.87); Eosinophils % 2.6 % (0.00-10.9); Hematocrit 31.1 VOL% (35.7-47.0); Hemoglobin 9.5 GM/DL (12.0-16.0); Immature Granulocytes % 0.3 %; Immature Granulocytes Absolute 0.03 #; Lymphocytes # 1.5 10*3/uL (1.4-4.0); Lymphocytes % 17.2 % (21.3-54.2); Mean Corpuscular HGB Conc 30.5 GM/DL (32-36); Mean Corpuscular Volume 94.5 FL (87-102); Mean Platelet Volume 9.7 FL (9.6-12.0); Monocytes % 5.6 % (1.7-12.7); Neutrophils % 73.6 % (38.7-73.9); Platelet Count 377 T/CUMM (130-400); Red Blood Count 3.29 MC/CUMM (3.8-5.5); Red Cell Distribution Width 15.1 % (9.3-17.3); White Blood Count 8.9 T/CUMM (4-12)
[2020-07-23 18:53] LABS: PT Patient Result 10.5 SECS (9.8-11.9)
[2020-07-23 19:12] LABS: Alanine Aminotransferase 53 U/L (13-56); Albumin 2.8 G/DL (3.4-5.0); Alkaline Phosphatase 65 U/L (45-117); Aspartate Amino Transferase 60 U/L (0-37); Bilirubin,Total < 0.39 MG/DL (0.2-1.0); Blood Urea Nitrogen 83 MG/DL (7-18); Carbon Dioxide 15 MMOL/L (21-32); Estimated Glom Filtration Rate 6 ML/MIN; Glucose 98 MG/DL (74-106); Osmolality,Calculated 312.7 MOS/KG (273-304); Potassium 5.1 MMOL/L (3.5-5.1); Sodium 145 MMOL/L (136-145); Total Protein 7.3 G/DL (6.4-8.3)
[2020-07-23] MEDS ORDERED: LABETALOL 20 MG/4 ML SYRINGE IV STA (19:45)
[2020-07-23 19:46] LABS: Bacteria,Urine Occasional /HPF (Few); Bilirubin,Urine Negative (Negative); Blood, Urine Moderate mg/dL (Negative); Glucose,Urine (UA) 50 mg/dL (Negative); Ketones,Urine Negative (Negative); Mucus,Urine Occasional /LPF (Occasional); Nitrite,Urine Negative (Negative); Protein,Urine >=500 MG/DL; RBC,Urine 6 /HPF (0-4); Squamous Epithelial Cell,Urine Occasional /HPF (0-10); Urine Appearance CLEAR (Clear); Urine Color Straw (Yellow); Urine Specific Gravity 1.012 (1.001-1.035); Urine Urobilinogen < 2.0 EU/DL (0.2-1.0); WBC,Urine 2 /HPF (0-6)
[2020-07-23 19:52] LABS: Barbiturates Screen,Urine Negative (Negative); Benzodiazepines Screen,Urine Negative (Negative); Cannabinoid Screen,Urine Negative (Negative); Opiate Screen,Urine Negative (Negative); Phencyclidine Screen,Urine Negative (Negative)
[2020-07-23] MEDS ORDERED: SODIUM CHLORIDE 0.9% 500 ML IV STA (20:07)
[2020-07-23] MEDS ORDERED: GLUCAGON 1 MG VIAL IM PRN (20:16)
[2020-07-23] MEDS ORDERED: DEXTROSE 50% 25 GM/50 ML VIAL IV PRN (20:16)
[2020-07-23] MEDS ORDERED: ONDANSETRON 4 MG/2 ML VIAL IV PRN (20:16)
[2020-07-23] MEDS: carvediloL 12.5 MG TABLET PO SCH (22:31)
[2020-07-23] MEDS: SODIUM CHLORIDE 0.9% 1,000 ML IV SCH (22:31)
[2020-07-23] MEDS: HEPARIN 5,000 UNIT/1 ML VIAL SUBCUT SCH (22:31)
[2020-07-24] MEDS: HEPARIN 5,000 UNIT/1 ML VIAL SUBCUT SCH ×3 (05:31→21:33)
[2020-07-24 06:45] LABS: Basophils # 0.1 10*3/uL (0.0-0.2); Basophils % 0.6 % (0.0-0.8); Eosinophils # 0.1 10*3/uL (0.0-0.87); Eosinophils % 1.7 % (0.00-10.9); Hematocrit 24.5 VOL% (35.7-47.0); Hemoglobin 7.6 GM/DL (12.0-16.0); Immature Granulocytes % 0.4 %; Immature Granulocytes Absolute 0.03 #; Lymphocytes # 1.3 10*3/uL (1.4-4.0); Lymphocytes % 16.7 % (21.3-54.2); Mean Corpuscular Volume 92.5 FL (87-102); Mean Platelet Volume 11.1 FL (9.6-12.0); Monocytes % 5.5 % (1.7-12.7); Neutrophils % 75.1 % (38.7-73.9); Platelet Count 301 T/CUMM (130-400); Red Blood Count 2.65 MC/CUMM (3.8-5.5); White Blood Count 7.8 T/CUMM (4-12)
[2020-07-24 07:03] LABS: Calcium 7.6 MG/DL (8.5-10.1); Potassium 5.6 MMOL/L (3.5-5.1)
[2020-07-24] MEDS: carvediloL 12.5 MG TABLET PO SCH ×2 (09:31→16:22)
[2020-07-24] MEDS: PANTOPRAZOLE 40 MG TABLET PO SCH (09:31)
[2020-07-24] MEDS: AZITHROMYCIN 250 MG TABLET PO SCH (09:31)
[2020-07-24] MEDS: guaiFENesin/DM ER 600-30 MG TABLET PO SCH ×2 (09:31→21:33)
[2020-07-24] MEDS: ALBUTEROL/IPRATROPIUM 3 ML NEB RESP TX SCH ×2 (13:15→19:46)
[2020-07-24] MEDS: SODIUM CHLORIDE 0.9% 1,000 ML IV SCH ×2 (16:02→23:56)
[2020-07-24] MEDS ORDERED: SODIUM POLYSTYRENE SULFATE 15 GM/60 ML BOTTLE PO STA (16:03)
[2020-07-24 16:54] LABS: % Iron Saturation 29.1 % (18-50)
[2020-07-24 17:06] LABS: Folate 19.5 NG/ML (5.38-24.0)
[2020-07-24] MEDS: ACETAMINOPHEN 325 MG TABLET PO PRN (18:25)
[2020-07-25] MEDS: ALBUTEROL/IPRATROPIUM 3 ML NEB RESP TX SCH ×4 (01:38→20:32)
[2020-07-25 06:07] LABS: Basophils # 0.1 10*3/uL (0.0-0.2); Basophils % 0.7 % (0.0-0.8); Eosinophils # 0.2 10*3/uL (0.0-0.87); Eosinophils % 2.5 % (0.00-10.9); Hematocrit 25.1 VOL% (35.7-47.0); Hemoglobin 7.7 GM/DL (12.0-16.0); Immature Granulocytes % 0.4 %; Immature Granulocytes Absolute 0.03 #; Lymphocytes # 1.6 10*3/uL (1.4-4.0); Lymphocytes % 22.9 % (21.3-54.2); Mean Corpuscular HGB Conc 30.7 GM/DL (32-36); Mean Platelet Volume 9.5 FL (9.6-12.0); Monocytes % 7.5 % (1.7-12.7); NRBC # 0.03 10*3/uL; Platelet Count 332 T/CUMM (130-400); Red Cell Distribution Width 15.1 % (9.3-17.3); White Blood Count 6.9 T/CUMM (4-12)
[2020-07-25] MEDS: HEPARIN 5,000 UNIT/1 ML VIAL SUBCUT SCH ×3 (06:15→20:47)
[2020-07-25 06:33] LABS: Albumin 2.6 G/DL (3.4-5.0); Bilirubin,Total 0.7 MG/DL (0.2-1.0); Calcium 7.6 MG/DL (8.5-10.1); Potassium 4.7 MMOL/L (3.5-5.1); Total Protein 6.5 G/DL (6.4-8.3)
[2020-07-25 07:20] LABS: Hepatitis B Core IgM Quant 0.11 Index; Hepatitis B Surface Ag Quant < 0.10 Index; Hepatitis B Surface Ag Result Non-Reactive (NonReactive); Hepatitis C Virus Ab Quant 0.04 Index; Hepatitis C Virus Ab Result Non-Reactive (NonReactive)
[2020-07-25] MEDS: SODIUM CHLORIDE 0.9% 1,000 ML IV SCH ×2 (08:00→17:56)
[2020-07-25] MEDS: carvediloL 12.5 MG TABLET PO SCH (08:46)
[2020-07-25] MEDS: PANTOPRAZOLE 40 MG TABLET PO SCH (08:47)
[2020-07-25] MEDS: guaiFENesin/DM ER 600-30 MG TABLET PO SCH ×2 (08:47→20:46)
[2020-07-25] MEDS: AZITHROMYCIN 250 MG TABLET PO SCH (08:47)
[2020-07-25] MEDS: FLUTICASONE 50 MCG NASAL SPRAY 16 GM BOTTLE BOTH NARES PRN ×2 (10:58→20:46)
[2020-07-25] MEDS ORDERED: MAGNESIUM SULF RIDER 4 GM in PREMIX 1 EACH IV PRN (13:17)
[2020-07-25] MEDS ORDERED: MAGNESIUM SULF RIDER 2 GM in PREMIX 1 EACH IV PRN (13:17)
[2020-07-25] MEDS: SODIUM BICARBONATE 650 MG TABLET PO SCH ×2 (14:05→20:47)
[2020-07-25] MEDS: carvediloL 25 MG TABLET PO SCH (17:56)
[2020-07-25] MEDS: CALCIUM CARBONATE CHEW 500 MG TABLET PO SCH (20:46)
[2020-07-26] MEDS: ALBUTEROL/IPRATROPIUM 3 ML NEB RESP TX SCH ×4 (01:17→19:12)
[2020-07-26] MEDS: SODIUM CHLORIDE 0.9% 1,000 ML IV SCH ×3 (02:05→16:22)
[2020-07-26] MEDS: HEPARIN 5,000 UNIT/1 ML VIAL SUBCUT SCH ×3 (05:26→20:57)
[2020-07-26 07:30] LABS: Basophils # 0.1 10*3/uL (0.0-0.2); Basophils % 0.8 % (0.0-0.8); Eosinophils # 0.2 10*3/uL (0.0-0.87); Eosinophils % 2.3 % (0.00-10.9); Hematocrit 25.1 VOL% (35.7-47.0); Hemoglobin 7.4 GM/DL (12.0-16.0); Immature Granulocytes % 0.9 %; Immature Granulocytes Absolute 0.06 #; Lymphocytes # 1.3 10*3/uL (1.4-4.0); Lymphocytes % 19.6 % (21.3-54.2); Mean Corpuscular HGB Conc 29.5 GM/DL (32-36); Mean Corpuscular Volume 96.5 FL (87-102); Mean Platelet Volume 9.9 FL (9.6-12.0); Monocytes % 6.8 % (1.7-12.7); NRBC # 0.04 10*3/uL; Neutrophils % 69.6 % (38.7-73.9); Platelet Count 344 T/CUMM (130-400); Red Cell Distribution Width 15.4 % (9.3-17.3); White Blood Count 6.6 T/CUMM (4-12)
[2020-07-26 07:46] LABS: Calcium 7.6 MG/DL (8.5-10.1); Potassium 4.6 MMOL/L (3.5-5.1)
[2020-07-26] MEDS: CALCIUM CARBONATE CHEW 500 MG TABLET PO SCH ×3 (08:59→20:56)
[2020-07-26] MEDS: AZITHROMYCIN 250 MG TABLET PO SCH (08:59)
[2020-07-26] MEDS: PANTOPRAZOLE 40 MG TABLET PO SCH (08:59)
[2020-07-26] MEDS: carvediloL 25 MG TABLET PO SCH ×2 (08:59→16:18)
[2020-07-26] MEDS: SODIUM BICARBONATE 650 MG TABLET PO SCH ×3 (08:59→20:57)
[2020-07-26] MEDS: guaiFENesin/DM ER 600-30 MG TABLET PO SCH ×2 (08:59→20:56)
[2020-07-26] MEDS: FLUTICASONE 50 MCG NASAL SPRAY 16 GM BOTTLE BOTH NARES PRN ×2 (09:01→20:56)
[2020-07-26] MEDS ORDERED: BENZOCAINE/MENTHOL LOZENGE 18/BOX PO PRN (12:07)
[2020-07-27] MEDS: SODIUM CHLORIDE 0.9% 1,000 ML IV SCH ×2 (00:04→08:09)
[2020-07-27] MEDS: ALBUTEROL/IPRATROPIUM 3 ML NEB RESP TX SCH ×4 (00:12→20:28)
[2020-07-27] MEDS: HEPARIN 5,000 UNIT/1 ML VIAL SUBCUT SCH ×3 (04:30→20:33)
[2020-07-27 06:10] LABS: Basophils % 0.6 % (0.0-0.8); Eosinophils # 0.2 10*3/uL (0.0-0.87); Eosinophils % 2.6 % (0.00-10.9); Hematocrit 24.8 VOL% (35.7-47.0); Hemoglobin 7.4 GM/DL (12.0-16.0); Immature Granulocytes % 0.6 %; Immature Granulocytes Absolute 0.04 #; Lymphocytes # 1.3 10*3/uL (1.4-4.0); Lymphocytes % 20.3 % (21.3-54.2); Mean Corpuscular HGB Conc 29.8 GM/DL (32-36); Mean Corpuscular Volume 96.5 FL (87-102); Mean Platelet Volume 9.3 FL (9.6-12.0); Monocytes % 8.9 % (1.7-12.7); NRBC # 0.03 10*3/uL; Platelet Count 324 T/CUMM (130-400); Red Blood Count 2.57 MC/CUMM (3.8-5.5); Red Cell Distribution Width 15.5 % (9.3-17.3); White Blood Count 6.5 T/CUMM (4-12)
[2020-07-27 06:36] LABS: Calcium 7.7 MG/DL (8.5-10.1); Osmolality,Calculated 306.8 MOS/KG (273-304); Potassium 4.4 MMOL/L (3.5-5.1)
[2020-07-27] MEDS ORDERED: ceFAZolin 1,000 MG in SYRINGE 1 EACH IV ONE (07:37)
[2020-07-27] MEDS ORDERED: BUPIVACAINE MPF 0.25% 30 ML VIAL ONE (08:08)
[2020-07-27] MEDS: FLUTICASONE 50 MCG NASAL SPRAY 16 GM BOTTLE BOTH NARES PRN (08:09)
[2020-07-27] MEDS ORDERED: LIDOCAINE 1%/EPI INJ 20 ML VIAL ONE (08:09)
[2020-07-27] MEDS ORDERED: LIDOCAINE 2% 5 ML VIAL ONE (08:36)
[2020-07-27] MEDS ORDERED: propofoL 200 MG/20 ML VIAL IV ONE (08:36)
[2020-07-27] MEDS ORDERED: fentaNYL 100 MCG/2 ML VIAL ONE (08:37)
[2020-07-27] MEDS ORDERED: MIDAZOLAM 2 MG/2 ML VIAL ONE (08:37)
[2020-07-27] MEDS ORDERED: SODIUM CHLORIDE 0.9% 250 ML IV SCH (09:00)
[2020-07-27] MEDS ORDERED: TISSUE ADHESIVE 1 EACH APPLICATOR TOP ONE (09:31)
[2020-07-27] MEDS: carvediloL 25 MG TABLET PO SCH ×3 (10:33→18:12)
[2020-07-27] MEDS: PANTOPRAZOLE 40 MG TABLET PO SCH (10:39)
[2020-07-27] MEDS: guaiFENesin/DM ER 600-30 MG TABLET PO SCH ×2 (10:39→20:33)
[2020-07-27] MEDS: SODIUM BICARBONATE 650 MG TABLET PO SCH ×3 (10:39→20:32)
[2020-07-27] MEDS: AZITHROMYCIN 250 MG TABLET PO SCH (10:39)
[2020-07-27] MEDS: CALCIUM CARBONATE CHEW 500 MG TABLET PO SCH ×3 (10:39→20:32)
[2020-07-27] MEDS ORDERED: GLUCAGON 1 MG VIAL IM PRN (16:20)
[2020-07-27] MEDS ORDERED: DEXTROSE 50% 25 GM/50 ML VIAL IV PRN (16:20)
[2020-07-27] MEDS: INSULIN LISPRO 100 UNIT/ML SUBCUT SCH ×2 (16:38→19:51)
[2020-07-27] MEDS ORDERED: HEPARIN 10,000 UNIT/10 ML VIAL IV SCH (17:45)
[2020-07-27] MEDS: ACETAMINOPHEN 325 MG TABLET PO PRN (20:31)
[2020-07-28] MEDS: ALBUTEROL/IPRATROPIUM 3 ML NEB RESP TX SCH ×5 (00:27→18:54)
[2020-07-28] MEDS: HEPARIN 5,000 UNIT/1 ML VIAL SUBCUT SCH ×3 (05:36→21:28)
[2020-07-28 05:42] LABS: Basophils % 0.6 % (0.0-0.8); Eosinophils # 0.1 10*3/uL (0.0-0.87); Hematocrit 21.9 VOL% (35.7-47.0); Hemoglobin 6.7 GM/DL (12.0-16.0); Immature Granulocytes % 0.8 %; Immature Granulocytes Absolute 0.05 #; Lymphocytes % 15.3 % (21.3-54.2); Mean Corpuscular HGB Conc 30.6 GM/DL (32-36); Mean Corpuscular Volume 93.6 FL (87-102); Mean Platelet Volume 10.5 FL (9.6-12.0); Monocytes % 11.1 % (1.7-12.7); NRBC # 0.05 10*3/uL; Neutrophils % 70.2 % (38.7-73.9); Platelet Count 295 T/CUMM (130-400); Red Blood Count 2.34 MC/CUMM (3.8-5.5); Red Cell Distribution Width 15.2 % (9.3-17.3); White Blood Count 6.4 T/CUMM (4-12)
[2020-07-28 06:10] LABS: Calcium 7.6 MG/DL (8.5-10.1); Osmolality,Calculated 302.6 MOS/KG (273-304)
[2020-07-28] MEDS: CALCIUM CARBONATE CHEW 500 MG TABLET PO SCH ×3 (09:00→21:27)
[2020-07-28] MEDS: guaiFENesin/DM ER 600-30 MG TABLET PO SCH ×2 (09:00→21:28)
[2020-07-28] MEDS: carvediloL 25 MG TABLET PO SCH ×2 (09:00→16:52)
[2020-07-28] MEDS: ASPIRIN EC 81 MG TABLET PO SCH (09:00)
[2020-07-28] MEDS: PANTOPRAZOLE 40 MG TABLET PO SCH (09:00)
[2020-07-28] MEDS: SODIUM BICARBONATE 650 MG TABLET PO SCH ×3 (09:00→21:28)
[2020-07-28] MEDS: AZITHROMYCIN 250 MG TABLET PO SCH (09:01)
[2020-07-28] MEDS: INSULIN LISPRO 100 UNIT/ML SUBCUT SCH ×4 (09:05→18:04)
[2020-07-28] MEDS ORDERED: SODIUM CHLORIDE 0.9% 1,000 ML IV PRN (09:27)
[2020-07-28] MEDS ORDERED: cloNIDine 0.1 MG TABLET PO PRN (11:20)
[2020-07-28] MEDS ORDERED: hydrALAZINE 20 MG/1 ML VIAL IV PRN (14:56)
[2020-07-28 18:21] LABS: Hematocrit 28.7 VOL% (35.7-47.0); Hemoglobin 9.1 GM/DL (12.0-16.0)
[2020-07-28] MEDS: ACETAMINOPHEN 325 MG TABLET PO PRN (22:23)
[2020-07-28] MEDS: FLUTICASONE 50 MCG NASAL SPRAY 16 GM BOTTLE BOTH NARES PRN (22:24)
[2020-07-29] MEDS: ALBUTEROL/IPRATROPIUM 3 ML NEB RESP TX SCH ×4 (00:02→19:07)
[2020-07-29] MEDS: HEPARIN 5,000 UNIT/1 ML VIAL SUBCUT SCH ×3 (04:59→22:15)
[2020-07-29 06:59] LABS: Basophils # 0.1 10*3/uL (0.0-0.2); Basophils % 0.9 % (0.0-0.8); Eosinophils # 0.2 10*3/uL (0.0-0.87); Eosinophils % 2.5 % (0.00-10.9); Hematocrit 29.5 VOL% (35.7-47.0); Hemoglobin 9.2 GM/DL (12.0-16.0); Immature Granulocytes % 0.4 %; Immature Granulocytes Absolute 0.03 #; Lymphocytes # 1.4 10*3/uL (1.4-4.0); Lymphocytes % 20.6 % (21.3-54.2); Mean Corpuscular HGB Conc 31.2 GM/DL (32-36); Mean Corpuscular Volume 89.9 FL (87-102); Mean Platelet Volume 10.8 FL (9.6-12.0); Monocytes % 11.7 % (1.7-12.7); NRBC # 0.04 10*3/uL; Neutrophils % 63.9 % (38.7-73.9); Platelet Count 246 T/CUMM (130-400); Red Blood Count 3.28 MC/CUMM (3.8-5.5); White Blood Count 6.9 T/CUMM (4-12)
[2020-07-29 07:15] LABS: Calcium 7.9 MG/DL (8.5-10.1); Osmolality,Calculated 287.1 MOS/KG (273-304); Potassium 3.6 MMOL/L (3.5-5.1)
[2020-07-29] MEDS: ACETAMINOPHEN 325 MG TABLET PO PRN (09:06)
[2020-07-29] MEDS: guaiFENesin/DM ER 600-30 MG TABLET PO SCH ×2 (09:06→22:15)
[2020-07-29] MEDS: CALCIUM CARBONATE CHEW 500 MG TABLET PO SCH ×3 (09:06→22:14)
[2020-07-29] MEDS: ASPIRIN EC 81 MG TABLET PO SCH (09:07)
[2020-07-29] MEDS: cloNIDine 0.1 MG TABLET PO SCH ×2 (09:07→22:14)
[2020-07-29] MEDS: SODIUM BICARBONATE 650 MG TABLET PO SCH ×3 (09:07→22:14)
[2020-07-29] MEDS: CETIRIZINE 10 MG TABLET PO PRN (09:08)
[2020-07-29] MEDS: PANTOPRAZOLE 40 MG TABLET PO SCH (09:08)
[2020-07-29] MEDS: carvediloL 25 MG TABLET PO SCH ×2 (09:08→16:00)
[2020-07-29] MEDS: INSULIN LISPRO 100 UNIT/ML SUBCUT SCH ×2 (10:43→17:06)
[2020-07-30] MEDS: ALBUTEROL/IPRATROPIUM 3 ML NEB RESP TX SCH ×2 (00:13→07:22)
[2020-07-30] MEDS: HEPARIN 5,000 UNIT/1 ML VIAL SUBCUT SCH ×2 (05:59→13:58)
[2020-07-30] MEDS: INSULIN LISPRO 100 UNIT/ML SUBCUT SCH (08:04)
[2020-07-30] MEDS: SODIUM BICARBONATE 650 MG TABLET PO SCH ×2 (08:51→15:21)
[2020-07-30] MEDS: guaiFENesin/DM ER 600-30 MG TABLET PO SCH (08:52)
[2020-07-30] MEDS: CALCIUM CARBONATE CHEW 500 MG TABLET PO SCH ×2 (08:52→15:21)
[2020-07-30] MEDS: cloNIDine 0.1 MG TABLET PO SCH (08:52)
[2020-07-30] MEDS: ASPIRIN EC 81 MG TABLET PO SCH (08:52)
[2020-07-30] MEDS: carvediloL 25 MG TABLET PO SCH (08:52)
[2020-07-30] MEDS: PANTOPRAZOLE 40 MG TABLET PO SCH (08:52)
[2020-07-30] MEDS: FLUTICASONE 50 MCG NASAL SPRAY 16 GM BOTTLE BOTH NARES PRN (08:53)
[2020-07-30] MEDS: CETIRIZINE 10 MG TABLET PO PRN (09:45)
[2020-07-30 11:59] VITALS: BP 146/75
[2020-07-30] MEDS ORDERED: AMOXICILLIN/CLAV 500 MG TABLET PO SCH (12:00)
== END 2020-07-30 17:35 | disposition home or self-care (01) | DRG 674 ==
LOC: N.ED 17:25 → SUATTDRO 20:16 → N.EDINP 20:16 → N.5E 07-24 01:14
PROVIDERS: ADMIT Internal Medicine; ATTEND Internal Medicine

== ENCOUNTER 2021-01-14 20:58 | Inpatient (IN) ==
[2021-01-14 22:03] LABS: Basophils # 0.1 10*3/uL (0.0-0.2); Basophils % 0.4 % (0.0-0.8); Eosinophils # 0.3 10*3/uL (0.0-0.87); Eosinophils % 2.1 % (0.00-10.9); Hematocrit 26.5 VOL% (35.7-47.0); Hemoglobin 7.9 GM/DL (12.0-16.0); Immature Granulocytes % 1.2 %; Immature Granulocytes Absolute 0.15 #; Lymphocytes # 0.8 10*3/uL (1.4-4.0); Lymphocytes % 6.5 % (21.3-54.2); Mean Corpuscular HGB Conc 29.8 GM/DL (32-36); Mean Platelet Volume 10.4 FL (9.6-12.0); Monocytes % 4.2 % (1.7-12.7); NRBC # 0.05 10*3/uL; Neutrophils % 85.6 % (38.7-73.9); Platelet Count 349 T/CUMM (130-400); Red Blood Count 2.79 MC/CUMM (3.8-5.5); Red Cell Distribution Width 16.9 % (9.3-17.3); White Blood Count 12.8 T/CUMM (4-12)
[2021-01-14 22:34] LABS: Alanine Aminotransferase 27 U/L (13-56); Albumin 2.8 G/DL (3.4-5.0); Alkaline Phosphatase 68 U/L (45-117); Aspartate Amino Transferase 35 U/L (0-37); Bilirubin,Total < 0.39 MG/DL (0.20-1.00); Blood Urea Nitrogen 101 MG/DL (7-18); Calcium 7.3 MG/DL (8.5-10.1); Estimated Glom Filtration Rate 4 ML/MIN; Glucose 124 MG/DL (74-106); Osmolality,Calculated 315.1 MOS/KG (273-304); Potassium 4.2 MMOL/L (3.5-5.1); Sodium 142 MMOL/L (136-145); Total Protein 7.5 G/DL (6.4-8.2)
[2021-01-14 22:56] LABS: Carbon Dioxide 7 MMOL/L (21-32)
[2021-01-14] MEDS ORDERED: hydrALAZINE 20 MG/1 ML VIAL IV STA (23:51)
[2021-01-15] MEDS ORDERED: DEXTROSE 50% 25 GM/50 ML VIAL IV PRN (03:26)
[2021-01-15] MEDS ORDERED: GLUCAGON 1 MG VIAL IM PRN (03:26)
[2021-01-15] MEDS: SODIUM BICARBONATE 50 MEQ/50 ML VIAL IV SCH (06:41)
[2021-01-15] MEDS ORDERED: SODIUM BICARB INJ 50 MEQ in IV BAG 1 EACH IV ONE (07:00)
[2021-01-15 07:07] LABS: Basophils % 0.5 % (0.0-0.8); Eosinophils % 0.5 % (0.00-10.9); Hematocrit 22.4 VOL% (35.7-47.0); Hemoglobin 6.9 GM/DL (12.0-16.0); Immature Granulocytes % 1.3 %; Lymphocytes % 13.2 % (21.3-54.2); Mean Corpuscular HGB Conc 30.8 GM/DL (32-36); Mean Corpuscular Volume 92.6 FL (87-102); Mean Platelet Volume 10.3 FL (9.6-12.0); Monocytes % 7.3 % (1.7-12.7); NRBC # 0.07 10*3/uL; Neutrophils % 77.2 % (38.7-73.9); Platelet Count 305 T/CUMM (130-400); Red Blood Count 2.42 MC/CUMM (3.8-5.5); Red Cell Distribution Width 16.7 % (9.3-17.3); White Blood Count 7.4 T/CUMM (4-12)
[2021-01-15 07:32] LABS: Alanine Aminotransferase 28 U/L (13-56); Albumin 2.3 G/DL (3.4-5.0); Alkaline Phosphatase 58 U/L (45-117); Aspartate Amino Transferase 39 U/L (0-37); Bilirubin,Total < 0.39 MG/DL (0.20-1.00); Blood Urea Nitrogen 107 MG/DL (7-18); Calcium 6.8 MG/DL (8.5-10.1); Carbon Dioxide 5 MMOL/L (21-32); Estimated Glom Filtration Rate 4 ML/MIN; Glucose 89 MG/DL (74-106); Osmolality,Calculated 318.8 MOS/KG (273-304); Potassium 4.1 MMOL/L (3.5-5.1); Sodium 144 MMOL/L (136-145); Total Protein 6.5 G/DL (6.4-8.2)
[2021-01-15] MEDS ORDERED: ENOXAPARIN 30 MG/0.3 ML SYRINGE SUBCUT SCH (09:00)
[2021-01-15] MEDS ORDERED: SODIUM CHLORIDE 0.9% 1,000 ML IV PRN (09:36)
[2021-01-15] MEDS: PANTOPRAZOLE 40 MG TABLET PO SCH (10:11)
[2021-01-15] MEDS: hydrALAZINE 20 MG/1 ML VIAL IV PRN (10:12)
[2021-01-15 10:55] LABS: Hepatitis B Core IgM Quant 0.18 Index; Hepatitis B Surface Ag Quant < 0.10 Index; Hepatitis B Surface Ag Result Non-Reactive (NonReactive); Hepatitis C Virus Ab Quant < 0.02 Index; Hepatitis C Virus Ab Result Non-Reactive (NonReactive)
[2021-01-16] MEDS: hydrALAZINE 20 MG/1 ML VIAL IV PRN ×2 (03:42→15:47)
[2021-01-16 06:04] LABS: Basophils % 0.4 % (0.0-0.8); Eosinophils # 0.2 10*3/uL (0.0-0.87); Eosinophils % 3.5 % (0.00-10.9); Hematocrit 22.3 VOL% (35.7-47.0); Hemoglobin 6.9 GM/DL (12.0-16.0); Immature Granulocytes % 1.4 %; Lymphocytes # 1.2 10*3/uL (1.4-4.0); Lymphocytes % 17.3 % (21.3-54.2); Mean Corpuscular HGB Conc 30.9 GM/DL (32-36); Mean Corpuscular Volume 91.4 FL (87-102); Mean Platelet Volume 10.8 FL (9.6-12.0); NRBC # 0.11 10*3/uL; Neutrophils % 68.4 % (38.7-73.9); Platelet Count 336 T/CUMM (130-400); Red Blood Count 2.44 MC/CUMM (3.8-5.5); Red Cell Distribution Width 16.6 % (9.3-17.3); White Blood Count 6.9 T/CUMM (4-12)
[2021-01-16 06:25] LABS: Potassium 3.8 MMOL/L (3.5-5.1)
[2021-01-16] MEDS ORDERED: BUPIVACAINE MPF 0.25% 30 ML VIAL ONE (06:44)
[2021-01-16] MEDS ORDERED: LIDOCAINE 1% 20 ML VIAL ONE (06:45)
[2021-01-16] MEDS ORDERED: HEPARIN 5,000 UNIT/1 ML VIAL ONE (06:45)
[2021-01-16] MEDS ORDERED: CLINDAMYCIN INJ 900 MG/50 ML PREMIX IV ONE (06:54)
[2021-01-16] MEDS ORDERED: LIDOCAINE 2% 5 ML VIAL ONE (06:58)
[2021-01-16] MEDS ORDERED: fentaNYL 100 MCG/2 ML VIAL ONE (06:58)
[2021-01-16] MEDS ORDERED: propofoL 200 MG/20 ML VIAL IV ONE (06:58)
[2021-01-16] MEDS ORDERED: SODIUM CHLORIDE 0.9% 250 ML IV ONE (07:47)
[2021-01-16] MEDS ORDERED: HEPARIN 10,000 UNIT/10 ML VIAL IV ONE (10:45)
[2021-01-16] MEDS: PANTOPRAZOLE 40 MG TABLET PO SCH (15:48)
[2021-01-16 16:33] LABS: Hematocrit 27.7 VOL% (35.7-47.0); Hemoglobin 9.3 GM/DL (12.0-16.0)
[2021-01-16] MEDS: ACETAMINOPHEN 325 MG TABLET PO PRN (23:26)
[2021-01-17] MEDS: ONDANSETRON 4 MG/2 ML VIAL IV PRN ×2 (01:04→15:37)
[2021-01-17 06:21] LABS: Calcium 7.1 MG/DL (8.5-10.1); Potassium 2.9 MMOL/L (3.5-5.1)
[2021-01-17 06:22] LABS: Basophils % 0.4 % (0.0-0.8); Eosinophils # 0.2 10*3/uL (0.0-0.87); Eosinophils % 3.3 % (0.00-10.9); Hematocrit 27.8 VOL% (35.7-47.0); Hemoglobin 9.3 GM/DL (12.0-16.0); Immature Granulocytes % 0.9 %; Immature Granulocytes Absolute 0.06 #; Lymphocytes # 0.8 10*3/uL (1.4-4.0); Lymphocytes % 11.7 % (21.3-54.2); Mean Corpuscular HGB Conc 33.5 GM/DL (32-36); Mean Corpuscular Volume 85.3 FL (87-102); Mean Platelet Volume 10.8 FL (9.6-12.0); NRBC # 0.06 10*3/uL; Neutrophils % 72.7 % (38.7-73.9); Platelet Count 294 T/CUMM (130-400); Red Blood Count 3.26 MC/CUMM (3.8-5.5); Red Cell Distribution Width 16.6 % (9.3-17.3); White Blood Count 6.9 T/CUMM (4-12)
[2021-01-17] MEDS ORDERED: POTASSIUM CHLORIDE 20 MEQ TABLET PO PRN (08:04)
[2021-01-17] MEDS: PANTOPRAZOLE 40 MG TABLET PO SCH (08:55)
[2021-01-17] MEDS: POTASSIUM CHLORIDE 20 MEQ PACK PO SCH ×2 (08:55→10:31)
[2021-01-17] MEDS: hydrALAZINE 20 MG/1 ML VIAL IV PRN ×2 (13:23→22:05)
[2021-01-17] MEDS: ACETAMINOPHEN 325 MG TABLET PO PRN (15:38)
[2021-01-17] MEDS ORDERED: MELATONIN 3 MG TABLET PO PRN (22:19)
[2021-01-18 05:14] LABS: Basophils # 0.1 10*3/uL (0.0-0.2); Basophils % 0.8 % (0.0-0.8); Eosinophils # 0.4 10*3/uL (0.0-0.87); Eosinophils % 5.8 % (0.00-10.9); Hematocrit 29.1 VOL% (35.7-47.0); Hemoglobin 9.2 GM/DL (12.0-16.0); Immature Granulocytes % 0.8 %; Immature Granulocytes Absolute 0.05 #; Lymphocytes % 16.5 % (21.3-54.2); Mean Corpuscular HGB Conc 31.6 GM/DL (32-36); Mean Corpuscular Volume 87.9 FL (87-102); Mean Platelet Volume 9.7 FL (9.6-12.0); Monocytes % 13.1 % (1.7-12.7); NRBC # 0.04 10*3/uL; Platelet Count 280 T/CUMM (130-400); Red Blood Count 3.31 MC/CUMM (3.8-5.5); Red Cell Distribution Width 17.2 % (9.3-17.3); White Blood Count 6.2 T/CUMM (4-12)
[2021-01-18 05:39] LABS: Osmolality,Calculated 292.3 MOS/KG (273-304); Potassium 3.9 MMOL/L (3.5-5.1)
[2021-01-18] MEDS: PANTOPRAZOLE 40 MG TABLET PO SCH (08:45)
[2021-01-18] MEDS: hydrALAZINE 20 MG/1 ML VIAL IV PRN (16:50)
[2021-01-19 04:54] LABS: Basophils # 0.1 10*3/uL (0.0-0.2); Basophils % 0.9 % (0.0-0.8); Eosinophils # 0.4 10*3/uL (0.0-0.87); Eosinophils % 5.5 % (0.00-10.9); Hematocrit 32.3 VOL% (35.7-47.0); Hemoglobin 10.2 GM/DL (12.0-16.0); Immature Granulocytes % 0.7 %; Immature Granulocytes Absolute 0.05 #; Lymphocytes # 1.1 10*3/uL (1.4-4.0); Lymphocytes % 16.1 % (21.3-54.2); Mean Corpuscular HGB Conc 31.6 GM/DL (32-36); Mean Corpuscular Volume 87.8 FL (87-102); Mean Platelet Volume 9.8 FL (9.6-12.0); Monocytes % 11.7 % (1.7-12.7); NRBC # 0.02 10*3/uL; Neutrophils % 65.1 % (38.7-73.9); Platelet Count 230 T/CUMM (130-400); Red Blood Count 3.68 MC/CUMM (3.8-5.5); Red Cell Distribution Width 16.7 % (9.3-17.3); White Blood Count 6.9 T/CUMM (4-12)
[2021-01-19 05:09] LABS: Calcium 7.4 MG/DL (8.5-10.1); Osmolality,Calculated 280.5 MOS/KG (273-304); Potassium 3.7 MMOL/L (3.5-5.1)
[2021-01-19] MEDS: hydrALAZINE 20 MG/1 ML VIAL IV PRN (08:12)
[2021-01-19] MEDS: PANTOPRAZOLE 40 MG TABLET PO SCH (08:12)
[2021-01-19] MEDS ORDERED: HEPARIN 10,000 UNIT/10 ML VIAL IV ONE (12:30)
[2021-01-19] MEDS: cloNIDine 0.1 MG TABLET PO SCH ×2 (13:29→21:19)
[2021-01-19] MEDS: levETIRAcetam 500 MG TABLET PO SCH ×2 (21:19→21:24)
[2021-01-20 07:35] VITALS: BP 152/77
[2021-01-20] MEDS: PANTOPRAZOLE 40 MG TABLET PO SCH (09:30)
[2021-01-20] MEDS: cloNIDine 0.1 MG TABLET PO SCH (09:30)
[2021-01-20] MEDS: levETIRAcetam 500 MG TABLET PO SCH (09:30)
== END 2021-01-20 12:05 | disposition home or self-care (01) | DRG 56 ==
LOC: EDBD → EDUNIT# → N.ED 20:58 → N.EDINP 01-15 03:26 → N.5E 01-15 04:10
PROVIDERS: ADMIT Internal Medicine; ATTEND Internal Medicine